=== PATIENT | female | born 1940 | race Caucasian/White ===

== ENCOUNTER 2019-11-04 19:24 | Inpatient (IN) | payer MEDICARE ==
--- NOTE | 2019-11-04 19:42 | RADIOLOGY REPORT (SQ) ---
EXAM DESCRIPTION: CT HEAD WITHOUT IMAGES COMPLETED DATE/TIME: 11/04/2019 7:32 pm REASON FOR STUDY: s/s stroke COMPARISON: None. TECHNIQUE: Axial images acquired through the brain without intravenous contrast. Images reviewed wi th bone, brain and subdural windows. Additional sagittal and coronal reconstructions were generated. Images stored on PACS. All CT scanners at this facility use dose modulation, iterative reconstruction, and/or weight based d osing when appropriate to reduce radiation dose to as low as reasonably achievable (ALARA). [facility]: Dose Right [facility]: CareDose [facility]: Dose Right [facility]: Teradose 4D [facility]: [employer] RADIATION DOSE: mGy. LIMITATIONS: None. FINDINGS: VENTRICLES: Normal size and contour. CEREBRUM: No masses. No hemorrhage. No midline shift. No evidence for acute infarction. Normal gra y/white matter differentiation. No areas of low density in the white matter. CEREBELLUM: No masses. No hemorrhage. No alteration of density. No evidence for acute infarction. EXTRAAXIAL SPACES: No fluid collections. No masses. ORBITS AND GLOBE: No intra- or extraconal masses. Normal contour of globe without masses. CALVARIUM: No fracture. PARANASAL SINUSES: No fluid or mucosal thickening. SOFT TISSUES: No mass or hematoma. OTHER: No other significant finding. IMPRESSION: NORMAL BRAIN CT WITHOUT CONTRAST. EVIDENCE OF ACUTE STROKE: NO. COMMENT: Quality ID # [id number]: Final reports with documentation of one or more dose reduction techniques (e.g., Automated exposure control, adjustment of the mA and/or kV according to patient size, use of iterative reconstruction technique) TECHNICAL DOCUMENTATION: JOB ID: [id number] 2010 [employer]- All Rights Reserved Reading location - IP/workstation name: [email or web address]
--- NOTE | 2019-11-04 19:44 | RADIOLOGY REPORT (SQ) ---
EXAM DESCRIPTION: CHEST SINGLE VIEW IMAGES COMPLETED DATE/TIME: 11/04/2019 7:36 pm REASON FOR STUDY: s/s stroke COMPARISON: None. EXAM PARAMETERS: NUMBER OF VIEWS: One view. TECHNIQUE: Single frontal radiographic view of the chest acquired. RADIATION DOSE: NA LIMITATIONS: None. FINDINGS: LUNGS AND PLEURA: Hyperexpansion of the lungs. No infiltrate, effusion, or mass. MEDIASTINUM AND HILAR STRUCTURES: No masses. Contour normal. HEART AND VASCULAR STRUCTURES: Heart normal in size. Normal vasculature. BONES: No acute findings. HARDWARE: None in the chest. OTHER: No other significant finding. IMPRESSION: Chronic lung changes with no acute cardiopulmonary findings. TECHNICAL DOCUMENTATION: JOB ID: [id number] 2010 [employer]- All Rights Reserved Reading location - IP/workstation name: [email or web address]
[2019-11-04 19:58] LABS: ABSOLUTE EOSINOPHILS # (AUTO) 0.1 10^3/uL (0.0-0.6); ABSOLUTE LYMPHOCYTES (AUTO) 2.4 10^3/uL (0.5-4.7); ABSOLUTE MONOCYTES (AUTO) 0.4 10^3/uL (0.1-1.4); ABSOLUTE NEUT (AUTO) 4.1 10^3/uL (1.7-8.2); BASOPHILS % (AUTO) 0.5 % (0-2); EOSINOPHILS % (AUTO) 0.8 % (0-6); HEMATOCRIT 31.2 % (36.0-47.0); HEMOGLOBIN 10.3 g/dL (12.0-15.5); LYMPHOCYTES % (AUTO) 34.9 % (13-45); MEAN CORPUSCULAR HEMOGLOBIN 30.2 pg (27.0-33.4); MEAN CORPUSCULAR HGB CONC 32.9 g/dL (32.0-36.0); MEAN CORPUSCULAR VOLUME 92 fl (80-97); MONOCYTES % (AUTO) 6.1 % (3-13); PLATELET COUNT 216 10^3/uL (150-450); RED CELL DISTRIBUTION WIDTH 15.9 % (11.5-14.0); SEGMENTED NEUTROPHILS % (AUTO) 57.7 % (42-78); TOTAL CELLS COUNTED % (AUTO) 100 %
[2019-11-04 20:03] LABS: INTERNATIONAL RATION (INR) 0.97; PROTHROMBIN TIME 12.9 SEC (11.4-15.4)
[2019-11-04 20:04] LABS: PARTIAL THROMBOPLASTIN TIME 22.4 SEC (23.5-35.8)
--- NOTE | 2019-11-04 20:18 | ER Document Report ---
ED General - General Chief Complaint: S/S of Possible Stroke Stated Complaint: POSSIBLE STROKE Time Seen by Provider: 11/04/19 19:43 Primary Care Provider: ROSALIND CHILDRESS PA-C [Primary Care Provider] - Follow up as needed - HPI Notes: Patient is a 79-year-old female brought into the emergency department for evaluation. History is obtained entirely from EMS. Evidently patient was with family. She suddenly was unable to see, then was unable to speak. EMS was called. Upon their arrival she was having seizure activity. They went to the truck to obtain medication, by the time they returned her seizure activity had stopped. She was medicated with Versed, and brought to the emergency department for evaluation. The patient remained a phasic throughout the transport, but was able to answer my questions upon arrival. The patient denies any pain. She has no memory of the event, no memory of the day. She cannot tell me who her primary care provider is. - Related Data Allergies/Adverse Reactions: No Known Allergies Allergy (Unverified 11/04/19 21:07) Home Medications: Nitroglycerin patch, atorvastatin 40 mg daily, Plavix 75 mg daily, ferrous sulfate 325 mg daily, mirtazapine 7.5 mg at bedtime, Xanax 0.25 mg 3 times daily as needed, this is currently being weaned by primary care Past Medical History - General Information source: Emergency Med Personnel - Social History Smoking Status: Former Smoker Frequency of alcohol use: None Drug Abuse: None Family History: Reviewed & Not Pertinent Patient has homicidal ideation: No - Past Medical History Cardiac Medical History: Reports: Hx Coronary Artery Disease, Hx Heart Attack Pulmonary Medical History: Reports: Hx COPD Past Surgical History: Reports: Hx Coronary Stent Review of Systems - Review of Systems -: Yes ROS unobtainable due to patient's medical condition Neurological/Psychological: See HPI -: Yes All other systems reviewed and negative Physical Exam - Vital signs Vitals: Pulse Ox 99 11/04/19 19:24 - Notes Notes: This is an extremely frail-appearing 79-year-old female who appears her stated age, no acute distress. Vital signs reviewed, please refer to chart. Head is normocephalic, atraumatic. Pupils equal round, reactive to light. Neck is supple without meningismus. Heart is regular rate and rhythm. Lungs are clear to auscultation bilaterally. Abdomen is soft, nontender, normoactive bowel sounds throughout. Extremities without cyanosis, clubbing. Posterior calves are nontender. Peripheral pulses are equal. Skin is warm and dry. Patient is awake, alert, disoriented to place and time. Cranial nerves II - XII are grossly intact without focal neurological deficits. Strength is plus 4 out of 5 bilateral upper and lower extremities. Sensation is intact. Reflexes symmetrical. Intact rapid alternating movements and [id number]. She has difficulty with [id number]. Course - Re-evaluation Re-evalutation: 11/04/19 20:17 Patient presents to the emergency department for evaluation. She was called as a stroke alert as her symptoms, consistent with possible CVA, started at 1820. Upon presentation to the emergency department she had already had some improvement in her symptoms. At this point, besides some memory loss, she seems to have had complete resolution of her symptoms. My suspicion is that the memory loss is from her postictal state. Therefore, with resolution of her symptoms, this patient is in fact not a TPA candidate. I am awaiting conversation with family to determine her history, but I do see from her medication prescription history that she has been on Plavix in the past. I am unsure as to what sort of neurological work-up she has had, as this is her first visit to our facility. She is stable at this time. We will continue to monitor. 11/04/19 21:08 I was able to speak to patient's granddaughter, who was present at the time of symptom onset. Evidently the patient lived with her son in [place] until recently. She has had a heart attack, has been malnourished. No history of TIA or CVA per their knowledge. 11/04/19 21:28 Went back into evaluate patient. She seems to be back to baseline. She is able to tell me she lives with her daughter and granddaughter. Notes the year, month. I spoke with Dr. Guerra. I do believe this to be a TIA with seizure activity. The patient was given aspirin. We will admit her for further care. - Vital Signs Vital signs: Temp Pulse Resp BP Pulse Ox 97.7 F 110 H 24 H 170/79 H 100 11/04/19 19:36 11/04/19 19:26 11/04/19 21:01 11/04/19 21:00 11/04/19 21:01 - Laboratory Result Diagrams: 11/04/19 19:42 11/04/19 19:42 Laboratory results interpreted by me: 11/04/19 11/04/19 11/04/19 19:40 19:42 19:42 RBC 3.40 L Hgb 10.3 L Hct 31.2 L RDW 15.9 H APTT 22.4 L Glucose POC Glucose 124 H AST 11/04/19 19:42 RBC Hgb Hct RDW APTT Glucose 126 H POC Glucose AST 42 H - Diagnostic Test Radiology reviewed: Reports reviewed Radiology results interpreted by me: 11/04/19 20:18 Chest X-Ray 11/04/19 19:26 IMPRESSION: Chronic lung changes with no acute cardiopulmonary findings. Head CT 11/04/19 19:26 IMPRESSION: NORMAL BRAIN CT WITHOUT CONTRAST. EVIDENCE OF ACUTE STROKE: NO. - EKG Interpretation by Me Additional EKG results interpreted by me: 11/04/19 20:18 Sinus tachycardia with a rate of 112 bpm. Normal axis and intervals. Lateral nonspecific ST changes, likely secondary to LVH with strain, versus ischemia. No old studies available for comparison. Discharge - Discharge Clinical Impression: TIA (transient ischemic attack), Seizure Condition: Stable Disposition: ADMITTED INPATIENT Admitting Provider: Charlie (Hospitalist) Unit Admitted: [facility]U Referrals: ROSALIND CHILDRESS PA-C [Primary Care Provider] - Follow up as needed
[2019-11-04 20:20] LABS: ALBUMIN 3.6 g/dL (3.5-5.0); ALKALINE PHOSPHATASE 97 U/L (38-126); ANION GAP 9 (5-19); ASPARTATE AMINO TRANSFERASE 42 U/L (14-36); BILIRUBIN,TOTAL 0.3 mg/dL (0.2-1.3); BLOOD UREA NITROGEN 20 mg/dL (7-20); CALCIUM 8.6 mg/dL (8.4-10.2); CARBON DIOXIDE 25 mmol/L (22-30); CHLORIDE 104 mmol/L (98-107); CREATINE KINASE 59 U/L (30-135); GLUCOSE 126 mg/dL (75-110); POTASSIUM 4.5 mmol/L (3.6-5.0); TOTAL PROTEIN 6.4 g/dL (6.3-8.2)
[2019-11-04 20:26] LABS: CREATINE KINASE MB 2.08 ng/mL (<4.55)
[2019-11-04 20:30] LABS: TROPONIN I 0.016 ng/mL
[2019-11-04] MEDS ORDERED: ASPIRIN 325 MG TABLET PO ONE (21:07)
[2019-11-04] MEDS ORDERED: MAGNESIUM HYDROXIDE SUSP 30 ML UDCUP PO PRN (21:28)
[2019-11-04] MEDS ORDERED: DOCUSATE SODIUM 100 MG CAPSULE PO PRN (21:28)
[2019-11-04] MEDS ORDERED: LORAZEPAM INJ 2 MG/1 ML VIAL IV PRN (21:33)
[2019-11-04] MEDS ORDERED: METOPROLOL TARTRATE 25 MG TABLET PO ONE (22:07)
[2019-11-04] MEDS: HEPARIN SOD (PORCINE) 5,000 UNIT/ML 1 ML VIAL SUBCUT SCH (22:08)
[2019-11-04] MEDS: ATORVASTATIN CALCIUM 40 MG TABLET PO SCH (22:08)
[2019-11-05] MEDS ORDERED: HYDRALAZINE HCL INJ/PF 20 MG/1 ML SDV IV PRN (00:16)
[2019-11-05] MEDS ORDERED: DIAZEPAM INJ 10 MG/2 ML DISP.SYRIN IV ONE (01:00)
[2019-11-05] MEDS ORDERED: LEVETIRACETAM 1000 MG/NACL-ISO 1,000 MG/100 ML RTUPB IV ONE (01:00)
[2019-11-05] MEDS ORDERED: ALBUTEROL SULFATE HFA (90 MCG/PUFF) 200 PUFF/8.5 GM MDI IH PRN (03:47)
[2019-11-05] MEDS: IPRATROPIUM BROMIDE 0.02% NEB 0.5 MG/2.5 ML AMPUL NEB PRN ×2 (04:03→20:29)
--- NOTE | 2019-11-05 05:50 | PDOC H&P ---
History of Present Illness Admission Date/PCP: 11/04/19 21:39 ROSALIND CHILDRESS PA-C Patient complains of: Seizure History of Present Illness: TIANA REESE is a 79 year old female with a past medical history of coronary artery disease status post stent, dyslipidemia, iron deficiency anemia, malnutrition with cachexia and benzodiazepine dependent anxiety. Patient's h istory is obtained by the record as she is post ictal and poor historian. Patient is recently relocated from out of [facility] to reside with family where she has reportedly undergone a benzodiazepine taper. She presents shortly after complaining of loss of vision followed by difficulty with speech prompting a call to EMS who witnessed a seizure. In the emergency department she has no memory of the event and is unaware of her medical history or doctor. Past Medical History Cardiac Medical History: Reports: Coronary Artery Disease, Myocardial Infarction, Hyperlipidema, Hypertension Pulmonary Medical History: Reports: Chronic Obstructive Pulmonary Disease (COPD) GI Medical History: Reports: Gastroesophageal Reflux Disease Psychiatric Medical History: Reports: General Anxiety Disorder Denies: Depression Past Surgical History Past Surgical History: Reports: Coronary Stent Social History Information Source: Emergency Med Personnel Lives with: Family Smoking Status: Former Smoker Frequency of Alcohol Use: None Drugs: None - Advance Directive Resuscitation Status: Full Code Family History Family History: Other - Unobtainable Parental Family History Reviewed: No - Unobtainable Children Family History Reviewed: No - Unobtainable Sibling(s) Family History Reviewed.: No - Unobtainable Medication/Allergy Allergies/Adverse Reactions: No Known Allergies Allergy (Unverified 11/04/19 21:07) Review of Systems ROS unobtainable: Due to mental status Physical Exam Vital Signs: Temp Pulse Resp BP Pulse Ox 97.6 F 106 H 34 H 163/82 H 100 11/05/19 03:26 11/05/19 04:09 11/05/19 04:09 11/05/19 04:00 11/05/19 04:09 Intake & Output 11/03/19 11/04/19 11/05/19 11:59 11:59 11:59 Intake Total 100 Balance 100 Weight 32.5 kg General appearance: PRESENT: cooperative, disheveled, mild distress, thin, well- developed. ABSENT: well-nourished Head exam: PRESENT: atraumatic, normocephalic Eye exam: PRESENT: conjunctiva pink, conjunctiva pale, EOMI, PERRLA. ABSENT: scleral icterus Ear exam: PRESENT: normal external ear exam Mouth exam: PRESENT: dry mucosa, tongue midline. ABSENT: laceration Neck exam: ABSENT: carotid bruit, JVD, lymphadenopathy, thyromegaly Respiratory exam: PRESENT: clear to auscultation beatriz. ABSENT: rales, rhonchi, wheezes Cardiovascular exam: PRESENT: RRR. ABSENT: diastolic murmur, rubs, systolic murmur Pulses: PRESENT: normal dorsalis pedis pul Vascular exam: PRESENT: normal capillary refill GI/Abdominal exam: PRESENT: normal bowel sounds, soft. ABSENT: distended, guarding, mass, organolmegaly, rebound, tenderness Rectal exam: PRESENT: deferred Extremities exam: PRESENT: full ROM. ABSENT: calf tenderness, clubbing, pedal edema, other Musculoskeletal exam: PRESENT: full ROM. ABSENT: ambulatory Neurological exam: PRESENT: alert, altered, awake, oriented to person, CN II-XII grossly intact Psychiatric exam: PRESENT: appropriate affect, normal mood. ABSENT: homicidal ideation, suicidal ideation Skin exam: PRESENT: dry, intact, skin tears - Left arm skin tear, warm, other - 1 x 1 cm stage III sacral decub. ABSENT: cyanosis, rash Results Laboratory Results: 11/04/19 19:42 11/04/19 19:42 11/04/19 11/04/19 19:42 19:42 WBC 7.0 RBC 3.40 L Hgb 10.3 L Hct 31.2 L MCV 92 MCH 30.2 MCHC 32.9 RDW 15.9 H Plt Count 216 Seg Neutrophils % 57.7 Sodium 137.9 Potassium 4.5 Chloride 104 Carbon Dioxide 25 Anion Gap 9 BUN 20 Creatinine 0.59 Est GFR ( Amer) > 60 Glucose 126 H Calcium 8.6 Total Bilirubin 0.3 AST 42 H Alkaline Phosphatase 97 Total Protein 6.4 Albumin 3.6 11/04/19 11/04/19 19:42 19:42 Creatine Kinase 59 CK-MB (CK-2) 2.08 Troponin I 0.016 Impressions: Chest X-Ray 11/04/19 19:26 IMPRESSION: Chronic lung changes with no acute cardiopulmonary findings. Head CT 11/04/19 19:26 IMPRESSION: NORMAL BRAIN CT WITHOUT CONTRAST. EVIDENCE OF ACUTE STROKE: NO. Assessment and Plan - Diagnosis (1) TIA (transient ischemic attack) Is this a current diagnosis for this admission?: Yes Plan: Combination of multiple short-lived neurologic complaints, resolving to baseline without intervention suggesting seizure in the setting of benzodiazepine taper. That said she has uncontrolled hypertension and coronary vascular disease. CVA care set ordered. Preliminary work-up unremarkable, aspirin, permissive hypertension and statin ordered. (2) Hypertension Is this a current diagnosis for this admission?: Yes Plan: Permissive hypertension with hydralazine as needed systolic pressure greater than 180 (3) Seizure Is this a current diagnosis for this admission?: Yes Plan: Primary complaint most suggestive of seizure in the setting of benzodiazepine taper. Keppra load, Valium scheduled with Ativan as needed, supportive care (4) Anxiety Is this a current diagnosis for this admission?: Yes Plan: Low-dose Valium ordered (5) Cachexia Is this a current diagnosis for this admission?: Yes Plan: Unclear cause, follow-up prealbumin. - Time Time Spent with patient: 15-24 minutes - Inpatient Certification Based on my medical assessment, after consideration of the patient's comorbiditi es, presenting symptoms, or acuity I expect that the services needed warrant INPATIENT care.: Yes I certify that my determination is in accordance with my understanding of [facility]'s requirements for reasonable and necessary INPATIENT services [42 CFR 412.3e].: Yes Medical Necessity: Need Close Monitoring Due to Risk of Patient Decompensation
[2019-11-05] MEDS: HEPARIN SOD (PORCINE) 5,000 UNIT/ML 1 ML VIAL SUBCUT SCH ×3 (06:00→21:35)
[2019-11-05 06:23] LABS: ABSOLUTE LYMPHOCYTES (AUTO) 1.7 10^3/uL (0.5-4.7); ABSOLUTE MONOCYTES (AUTO) 0.6 10^3/uL (0.1-1.4); ABSOLUTE NEUT (AUTO) 6.3 10^3/uL (1.7-8.2); BASOPHILS % (AUTO) 0.3 % (0-2); EOSINOPHILS % (AUTO) 0.1 % (0-6); HEMATOCRIT 29.7 % (36.0-47.0); LYMPHOCYTES % (AUTO) 19.5 % (13-45); MEAN CORPUSCULAR HEMOGLOBIN 30.3 pg (27.0-33.4); MEAN CORPUSCULAR HGB CONC 33.6 g/dL (32.0-36.0); MEAN CORPUSCULAR VOLUME 90 fl (80-97); MONOCYTES % (AUTO) 6.9 % (3-13); PLATELET COUNT 185 10^3/uL (150-450); RED BLOOD COUNT 3.29 10^6/uL (3.72-5.28); RED CELL DISTRIBUTION WIDTH 15.6 % (11.5-14.0); SEGMENTED NEUTROPHILS % (AUTO) 73.2 % (42-78); TOTAL CELLS COUNTED % (AUTO) 100 %; WHITE BLOOD COUNT 8.7 10^3/uL (4.0-10.5)
[2019-11-05 06:45] LABS: ANION GAP 5 (5-19); BLOOD UREA NITROGEN 17 mg/dL (7-20); CALCIUM 8.7 mg/dL (8.4-10.2); CARBON DIOXIDE 28 mmol/L (22-30); CHLORIDE 102 mmol/L (98-107); GLUCOSE 110 mg/dL (75-110)
--- NOTE | 2019-11-05 07:48 | EKG REPORT ---
SEVERITY:- ABNORMAL ECG - SINUS TACHYCARDIA PROBABLE LVH WITH SECONDARY REPOL ABNRM : Confirmed by: Ebony Slater MD 05-Nov-2019 07:47:48
--- NOTE | 2019-11-05 07:48 | EKG REPORT ---
SEVERITY:- ABNORMAL ECG - SINUS TACHYCARDIA LVH WITH SECONDARY REPOLARIZATION ABNORMALITY REPOLARIZATION ABNORMALITY, PROB RATE RELATED : Confirmed by: Ebony Slater MD 05-Nov-2019 07:47:42
[2019-11-05] MEDS: BUDESONIDE NEB 0.5 MG/2 ML AMPUL NEB SCH ×2 (08:24→20:29)
[2019-11-05 08:49] LABS: ARTERIAL BLOOD BASE EXCESS 1.9 mmol/L; ARTERIAL BLOOD FIO2 3L; ARTERIAL BLOOD H2CO3 1.32 mmol/L (1.05-1.35); ARTERIAL BLOOD HCO3 26.9 mmol/L (20-24); ARTERIAL BLOOD O2 SATURATION 99.1 % (94-98); ARTERIAL BLOOD PO2 169.7 mmHg (80-100); ARTERIAL BLOOD TOTAL CO2 28.2 mmol/L (21-25)
[2019-11-05] MEDS: LEVETIRACETAM 1000 MG/NACL-ISO 1,000 MG/100 ML RTUPB IV SCH ×2 (09:19→21:31)
[2019-11-05] MEDS: ASPIRIN 81 MG TABLET, ENT COATED PO SCH (09:24)
[2019-11-05] MEDS: METOPROLOL TARTRATE 50 MG TABLET PO SCH ×2 (09:24→21:33)
--- NOTE | 2019-11-05 14:28 | RADIOLOGY REPORT (SQ) ---
EXAM DESCRIPTION: CAROTID DOPPLER IMAGES COMPLETED DATE/TIME: 11/05/2019 1:57 pm REASON FOR STUDY: seizure COMPARISON: None. TECHNIQUE: Grayscale ultrasound, Doppler velocity and spectra, and color Doppler images acquired of the extra-cranial carotid and vertebral arteries. Images stored on PACS. LIMITATIONS: Heavily calcified vessels. FINDINGS: RIGHT CAROTID CCA Velocities: Within normal limits. ICA Velocities Peak systolic 1.46 m/s. End diastolic 0.32 m/s. Proximal ICA/CCA peak systolic ratio 1.5. Complex calcified plaque in the carotid bulb and proximal ICA. LEFT CAROTID CCA Velocities: Within normal limits. ICA Velocities Peak systolic 1.25 m/s. End diastolic 0.18 m/s. Proximal ICA/CCA peak systolic ratio 1.8. Complex calcified plaque in the distal common carotid artery, carotid bulb and proximal ICA. VERTEBRAL ARTERIES: Antegrade flow. Normal waveforms. SUBCLAVIAN ARTERIES: No finding. OTHER: No other significant finding. IMPRESSION: Limited evaluation due to heavily calcified vessels. 50 to 69% stenosis bilaterally. COMMENT: Quality ID #[id number]: Velocity criteria are extrapolated from the diameter data as defined by t he Society of Radiologists in Ultrasound Consensus Conference. Radiology 2003: 229; 340-346. TECHNICAL DOCUMENTATION: JOB ID: [id number] 2010 [employer]- All Rights Reserved Reading location - IP/workstation name: [email or web address]
--- NOTE | 2019-11-05 16:15 | PDOC PROGRESS REPORT ---
Subjective Progress Note for:: 11/05/19 Subjective:: TIANA REESE is a 79 year old female with a past medical history of coronary artery disease status post stent, dyslipidemia, iron deficiency anemia, malnutrition with cachexia and benzodiazepine dependent anxiety who was admitted 11/04/2019 for TIA and new onset seizure activity. Patient was seen on afternoon rounds. She is found resting in bed, comfortably, on room air. She was sleeping but woke easily when I said her name. She is A&O to self and place; however, is able to list several of her medications accurately. She reports pleuritic chest pain; generalized discomfort with deep inspiration and cough. She denies productive cough. Otherwise, she reports fatigue and increased forgetfulness from her baseline today. She reports that her weight (during a healthy. And her mid 50s) should be about 130 pounds; she currently weighs 71 pounds. She does tell me that she has been gradually gaining weight over the last several weeks. She denies fever, chills, cardiac typical chest pain symptoms, dyspnea, orthopnea, abdominal pain, nausea vomiting and diarrhea. She has no other questions or concerns at this time. No concerns per nursing. Reason For Visit: BENZO WITHDRAW SZ VS TIA HTN CAD Physical Exam Vital Signs: Temp Pulse Resp BP Pulse Ox 98.0 F 78 18 134/54 H 92 11/05/19 10:51 11/05/19 14:00 11/05/19 12:00 11/05/19 12:00 11/05/19 12:00 Intake & Output 11/04/19 11/05/19 11/06/19 06:59 06:59 06:59 Intake Total 100 100 Balance 100 100 Weight 32.5 kg General appearance: PRESENT: no acute distress, cooperative, thin - Cachectic, well-developed Head exam: PRESENT: atraumatic, normocephalic Eye exam: PRESENT: conjunctiva pink, EOMI, PERRLA. ABSENT: scleral icterus Mouth exam: PRESENT: moist, tongue midline Respiratory exam: PRESENT: clear to auscultation beatriz, symmetrical, unlabored. ABSENT: rales, rhonchi, wheezes Cardiovascular exam: PRESENT: RRR. ABSENT: diastolic murmur, rubs, systolic murmur Pulses: PRESENT: normal dorsalis pedis pul Vascular exam: PRESENT: normal capillary refill GI/Abdominal exam: PRESENT: normal bowel sounds, soft. ABSENT: distended, guarding, mass, organolmegaly, rebound, tenderness Rectal exam: PRESENT: deferred Extremities exam: PRESENT: full ROM. ABSENT: calf tenderness, clubbing, pedal edema Neurological exam: PRESENT: alert, awake, oriented to person, oriented to place, CN II-XII grossly intact, other - Intermittently confused. ABSENT: motor sensory deficit Psychiatric exam: PRESENT: appropriate affect, normal mood. ABSENT: homicidal ideation, suicidal ideation Skin exam: PRESENT: dry, intact, warm. ABSENT: cyanosis, rash Results Laboratory Results: 11/05/19 05:45 11/05/19 05:45 11/04/19 11/04/19 11/05/19 19:42 19:42 05:45 WBC 7.0 8.7 RBC 3.40 L 3.29 L Hgb 10.3 L 10.0 L Hct 31.2 L 29.7 L MCV 92 90 MCH 30.2 30.3 MCHC 32.9 33.6 RDW 15.9 H 15.6 H Plt Count 216 185 Seg Neutrophils % 57.7 73.2 Carbonic Acid HCO3/H2CO3 Ratio ABG pH ABG pCO2 ABG pO2 ABG HCO3 ABG O2 Saturation ABG Base Excess FiO2 Sodium 137.9 Potassium 4.5 Chloride 104 Carbon Dioxide 25 Anion Gap 9 BUN 20 Creatinine 0.59 Est GFR ( Amer) > 60 Glucose 126 H Calcium 8.6 Total Bilirubin 0.3 AST 42 H Alkaline Phosphatase 97 Total Protein 6.4 Albumin 3.6 Prealbumin 11/05/19 11/05/19 11/05/19 05:45 05:45 08:42 WBC RBC Hgb Hct MCV MCH MCHC RDW Plt Count Seg Neutrophils % Carbonic Acid 1.32 HCO3/H2CO3 Ratio 20:1 ABG pH 7.40 ABG pCO2 44.0 ABG pO2 169.7 H ABG HCO3 26.9 H ABG O2 Saturation 99.1 H ABG Base Excess 1.9 FiO2 3L Sodium 135.4 L Potassium 4.0 Chloride 102 Carbon Dioxide 28 Anion Gap 5 BUN 17 Creatinine 0.46 L Est GFR ( Amer) > 60 Glucose 110 Calcium 8.7 Total Bilirubin AST Alkaline Phosphatase Total Protein Albumin Prealbumin 16.9 L 11/04/19 11/04/19 19:42 19:42 Creatine Kinase 59 CK-MB (CK-2) 2.08 Troponin I 0.016 Impressions: Chest X-Ray 11/04/19 19:26 IMPRESSION: Chronic lung changes with no acute cardiopulmonary findings. Head CT 11/04/19 19:26 IMPRESSION: NORMAL BRAIN CT WITHOUT CONTRAST. EVIDENCE OF ACUTE STROKE: NO. Carotid Doppler Study 11/05/19 21:29 IMPRESSION: Limited evaluation due to heavily calcified vessels. 50 to 69% stenosis bilaterally. Assessment and Plan - Diagnosis (1) TIA (transient ischemic attack) Is this a current diagnosis for this admission?: Yes Plan: Head CT is benign. Carotid Doppler are 50-69% occluded bilaterally. Echocardiogram is pending. Admitted to [facility] on continuous cardiac telemetry. Continue daily aspirin and statin therapy. Permissive hypertension. PT/OT/ST consultation. Discharge planning consulted. (2) Seizure Is this a current diagnosis for this admission?: Yes Plan: Primary complaint most suggestive of seizure in the setting of benzodiazepine taper. Head CT negative. Received loading dose Keppra; continue with Keppra twice daily. Resumed low dose Xanax. IV Ativan prn seizure activity. (3) Hypertension Is this a current diagnosis for this admission?: Yes Plan: Resume Metoprolol at 50 mg BID IV Hydralazine as needed for blood pressure control. Cardiac diet. (4) Anxiety Is this a current diagnosis for this admission?: Yes Plan: Due to concern for benzodiazepine withdrawal resulting in seizure activity due to rapid weaning from Xanax. Continue home dose Remeron. Resume Xanax at 0.25 mg TID. (5) Cachexia Is this a current diagnosis for this admission?: Yes Plan: BMI 13.5 Patient reports gradual weight gain over last several weeks. Continue Remeron. Consider Megace. Boost/Ensure with meals. people manager consulted. - Time Time Spent with patient: 25-34 minutes Medications reviewed and adjusted accordingly: Yes Anticipated discharge: Home with Homehealth Within: within 48 hours
[2019-11-05] MEDS ORDERED: LIDOCAINE 5% (700 MG) TRANSDERMAL ADH..PATCH TP ONE (17:00)
[2019-11-05] MEDS: ATORVASTATIN CALCIUM 40 MG TABLET PO SCH (21:33)
[2019-11-05] MEDS: ALPRAZOLAM 0.25 MG TABLET PO PRN (21:54)
--- NOTE | 2019-11-05 22:48 | XCELERA REPORT ---
[address] [address] Transthoracic Echocardiogram Report Name: TIANA REESE Age: 79 yrs Gender: Female : 1940 Patient Status: Inpatient Patient Location: [address] [place], [place] [address] Study Date: 11/05/2019 09:56 AM Height: 61 in Weight: 78 lb BSA: 1.3 m2 Procedure: A two-dimensional transthoracic echocardiogram with color flow and Doppler was performed. Study Quality: Good. Reason For Study: tia History: TIA. Ordering Physician: BLAYNE RUSSO Performed By: Maria Guadalupe Paniagua Interpretation Summary There is no obvious cardiac source of embolus noted on this transthoracic echocardiogram. Follow-up with a TANYA is suggested if cardiac source is still suspected. The left ventricle is normal in size. There is normal left ventricular wall thickness. LV EF is 60% to 65% Left ventricular systolic function is normal. Doppler measurements suggest impaired left ventricular relaxation, which is associated with grade I/IV or mild diastolic dysfunction The left ventricular wall motion is normal. There is no thrombus. No ASD,VSD,or PFO seen. The right ventricle is mildly dilated. The right ventricular systolic function is normal. The right atrium is normal. The left atrial size is normal. There is no evidence of mitral valve prolapse. There is no vegetation seen on the mitral valve. There is no mitral valve stenosis. There is a mild amount of mitral regurgitation There is no aortic valvular vegetation. There is aortic sclerosis without aortic stenosis. There is no aortic valve stenosis There is a mild to moderate amount of aortic regurgitation There is no tricuspid stenosis. There is a mild amount of tricuspid regurgitation There is moderate pulmonary hypertension by echo RVSP is 53 to 58 mm of Hg , with RA men of 5 to 10, There is no pulmonic valvular stenosis. There is a mild amount of pulmonic regurgitation The aortic root is normal size. The inferior vena cava appeared normal and decreased > 50% with respiration (RAP 5-10 mmHg) There is no pericardial effusion. There is no obvious cardiac source of embolus noted on this transthoracic echocardiogram. Follow-up with a TANYA is suggested if cardiac source is still suspected MMode/2D Measurements & Calculations RVDd: 2.3 cm LVIDd: 3.5 cm FS: 27.8 % Ao root diam: 2.9 cm IVSd: 1.2 cm LVIDs: 2.5 cm EDV(Teich): Ao root area: LVPWd: 1.1 cm 51.3 ml 6.5 cm2 ESV(Teich): 23.1 ml EF(Teich): 54.9 % EDV(MOD-sp4): SV(MOD-sp4): 44.5 ml 19.7 ml ESV(MOD-sp4): 24.8 ml EF(MOD-sp4): 44.3 % Doppler Measurements & Calculations MV E max zenaida: MV dec slope: Ao V2 max: AI max zenaida: 86.2 cm/sec 129.7 cm/sec 421.8 cm/sec MV A max zenaida: 463.2 cm/sec2 Ao max PG: AI max P.4 mmHg 142.2 cm/sec MV dec time: 6.7 mmHg AI dec slope: MV E/A: 0.61 0.19 sec 293.3 cm/sec2 AI P1/2t: 421.3 msec LV V1 max PG: PI end-d zenaida: TR max zenaida: 3.6 mmHg 180.3 cm/sec 343.7 cm/sec LV V1 max: TR max P.3 cm/sec 47.6 mmHg Left Ventricle The left ventricle is normal in size. There is normal left ventricular wall thickness. LV EF is 60% to 65%. Left ventricular systolic function is normal. Doppler measurements suggest impaired left ventricular relaxation, which is associated with grade I/IV or mild diastolic dysfunction. The left ventricular wall motion is normal. There is no thrombus. No ASD,VSD,or PFO seen. Right Ventricle The right ventricle is mildly dilated. The right ventricular systolic function is normal. Atria The right atrium is normal. The left atrial size is normal. Mitral Valve There is no evidence of mitral valve prolapse. There is no vegetation seen on the mitral valve. There is no mitral valve stenosis. There is a mild amount of mitral regurgitation. Aortic Valve There is no aortic valvular vegetation. There is aortic sclerosis without aortic stenosis. There is no aortic valve stenosis. There is a mild to moderate amount of aortic regurgitation. Tricuspid Valve There is no tricuspid stenosis. There is a mild amount of tricuspid regurgitation. There is moderate pulmonary hypertension by echo. RVSP is 53 to 58 mm of Hg , with RA men of 5 to 10,. Pulmonic Valve There is no pulmonic valvular stenosis. There is a mild amount of pulmonic regurgitation. Great Vessels The aortic root is normal size. The inferior vena cava appeared normal and decreased > 50% with respiration (RAP 5-10 mmHg). Effusions There is no pericardial effusion. : BLAYNE RUSSO Lakshmi
[2019-11-06 05:39] LABS: HEMATOCRIT 28.8 % (36.0-47.0); HEMOGLOBIN 9.6 g/dL (12.0-15.5); MEAN CORPUSCULAR HGB CONC 33.5 g/dL (32.0-36.0); MEAN CORPUSCULAR VOLUME 90 fl (80-97); PLATELET COUNT 180 10^3/uL (150-450); RED BLOOD COUNT 3.21 10^6/uL (3.72-5.28); RED CELL DISTRIBUTION WIDTH 15.6 % (11.5-14.0); WHITE BLOOD COUNT 7.3 10^3/uL (4.0-10.5)
[2019-11-06 06:08] LABS: BLOOD UREA NITROGEN 18 mg/dL (7-20); CALCIUM 8.5 mg/dL (8.4-10.2); CARBON DIOXIDE 29 mmol/L (22-30); CHLORIDE 104 mmol/L (98-107); GLUCOSE 80 mg/dL (75-110); POTASSIUM 3.7 mmol/L (3.6-5.0)
[2019-11-06 06:17] LABS: ANION GAP 3 (5-19)
[2019-11-06] MEDS: HEPARIN SOD (PORCINE) 5,000 UNIT/ML 1 ML VIAL SUBCUT SCH ×3 (06:59→21:05)
[2019-11-06] MEDS: IPRATROPIUM BROMIDE 0.02% NEB 0.5 MG/2.5 ML AMPUL NEB PRN (07:57)
[2019-11-06] MEDS: BUDESONIDE NEB 0.5 MG/2 ML AMPUL NEB SCH ×2 (07:57→20:23)
[2019-11-06] MEDS: ASPIRIN 81 MG TABLET, ENT COATED PO SCH (09:28)
[2019-11-06] MEDS: METOPROLOL TARTRATE 50 MG TABLET PO SCH ×2 (09:28→21:06)
[2019-11-06] MEDS: LEVETIRACETAM 1000 MG/NACL-ISO 1,000 MG/100 ML RTUPB IV SCH ×2 (09:28→21:05)
[2019-11-06] MEDS: LIDOCAINE 5% (700 MG) TRANSDERMAL ADH..PATCH TP SCH (09:29)
[2019-11-06] MEDS: MEGESTROL ACETATE SUSP 400 MG/10 ML UDCUP PO SCH (10:44)
--- NOTE | 2019-11-06 15:55 | PDOC PROGRESS REPORT ---
Subjective Progress Note for:: 11/06/19 Subjective:: TIANA REESE is a 79 year old female with a past medical history of coronary artery disease status post stent, dyslipidemia, iron deficiency anemia, malnutrition with cachexia and benzodiazepine dependent anxiety who was admitted 11/04/2019 for TIA and new onset seizure activity. Patient was seen on morning rounds. She is found resting in bed, comfortably, on room air. She was utilizing a bedpan asked me to return later. On follow-up visit, patient was found to be sleeping soundly; briefly opened her eyes when I said her name, but quickly fell back to sleep. Per nursing, she has been awake most of the day oriented to self and place, and pleasantly conversational. She does appear to be comfortable and not noted to be in any acute distress at this time. No concerns per nursing. Reason For Visit: BENZO WITHDRAW SZ VS TIA HTN CAD Physical Exam Vital Signs: Temp Pulse Resp BP Pulse Ox 97.6 F 88 15 137/58 H 98 11/06/19 10:48 11/06/19 14:00 11/06/19 12:00 11/06/19 12:00 11/06/19 12:00 Intake & Output 11/05/19 11/06/19 11/07/19 06:59 06:59 06:59 Intake Total 100 530 780 Output Total 1 Balance 100 530 779 Weight 32.5 kg 33 kg General appearance: PRESENT: no acute distress, cooperative, thin - Cachectic, well-developed Head exam: PRESENT: atraumatic, normocephalic Eye exam: PRESENT: conjunctiva pink, EOMI, PERRLA. ABSENT: scleral icterus Mouth exam: PRESENT: moist, tongue midline Neck exam: ABSENT: carotid bruit, JVD, lymphadenopathy, thyromegaly Respiratory exam: PRESENT: clear to auscultation beatriz, symmetrical, unlabored. ABSENT: rales, rhonchi, wheezes Cardiovascular exam: PRESENT: RRR. ABSENT: diastolic murmur, rubs, systolic murmur Pulses: PRESENT: normal dorsalis pedis pul Vascular exam: PRESENT: normal capillary refill GI/Abdominal exam: PRESENT: normal bowel sounds, soft. ABSENT: distended, guarding, mass, organolmegaly, rebound, tenderness Rectal exam: PRESENT: deferred Extremities exam: PRESENT: full ROM. ABSENT: calf tenderness, clubbing, pedal edema Musculoskeletal exam: PRESENT: full ROM Neurological exam: PRESENT: alert, awake, oriented to person, oriented to place, CN II-XII grossly intact. ABSENT: motor sensory deficit Psychiatric exam: PRESENT: appropriate affect, normal mood. ABSENT: homicidal ideation, suicidal ideation Skin exam: PRESENT: dry, intact, warm. ABSENT: cyanosis, rash Results Laboratory Results: 11/06/19 05:09 11/06/19 05:09 11/06/19 11/06/19 05:09 05:09 WBC 7.3 RBC 3.21 L Hgb 9.6 L Hct 28.8 L MCV 90 MCH 30.0 MCHC 33.5 RDW 15.6 H Plt Count 180 Sodium 136.2 L Potassium 3.7 Chloride 104 Carbon Dioxide 29 Anion Gap 3 L BUN 18 Creatinine 0.60 Est GFR ( Amer) > 60 Glucose 80 Calcium 8.5 11/04/19 11/04/19 19:42 19:42 Creatine Kinase 59 CK-MB (CK-2) 2.08 Troponin I 0.016 Impressions: Chest X-Ray 11/04/19 19:26 IMPRESSION: Chronic lung changes with no acute cardiopulmonary findings. Head CT 11/04/19 19:26 IMPRESSION: NORMAL BRAIN CT WITHOUT CONTRAST. EVIDENCE OF ACUTE STROKE: NO. Carotid Doppler Study 11/05/19 21:29 IMPRESSION: Limited evaluation due to heavily calcified vessels. 50 to 69% stenosis bilaterally. Assessment and Plan - Diagnosis (1) TIA (transient ischemic attack) Is this a current diagnosis for this admission?: Yes Plan: Head CT is benign. Carotid Doppler are 50-69% occluded bilaterally. Echocardiogram shows LVEF 60 to 65% with grade 1 LV diastolic dysfunction. Right ventricle mildly dilatated. Mild to moderate aortic regurgitation, mild tricuspid regurg, moderate pulmonary hypertension. Admitted to [facility] on continuous cardiac telemetry. Continue daily aspirin and statin therapy. PT/OT/ST consultation. Discharge planning consulted. (2) Seizure Is this a current diagnosis for this admission?: Yes Plan: Seizure-free x36 hours. Primary complaint most suggestive of seizure in the setting of benzodiazepine taper. Head CT negative. Received loading dose Keppra; continue with Keppra twice daily. Resumed low dose Xanax. IV Ativan prn seizure activity. (3) Hypertension Is this a current diagnosis for this admission?: Yes Plan: Well-controlled at present. Resume Metoprolol at 50 mg BID IV Hydralazine as needed for blood pressure control. Cardiac diet. (4) Anxiety Is this a current diagnosis for this admission?: Yes Plan: Due to concern for benzodiazepine withdrawal resulting in seizure activity due to rapid weaning from Xanax. Continue home dose Remeron. Resume Xanax at 0.25 mg TID. (5) Cachexia Is this a current diagnosis for this admission?: Yes Plan: BMI 13.5 Patient reports gradual weight gain over last several weeks. Continue Remeron. Initiated Megace this morning. Boost/Ensure with meals. snow shoveler consulted. - Time Time Spent with patient: 25-34 minutes Medications reviewed and adjusted accordingly: Yes Anticipated discharge: Home with Homehealth - vs SNF for rehab Within: within 24 hours
[2019-11-06] MEDS: ACETAMINOPHEN 325 MG TABLET PO PRN (19:50)
[2019-11-06] MEDS: ALBUTEROL SULFATE 0.083% NEB 2.5 MG/3 ML AMPUL NEB PRN (20:23)
[2019-11-06] MEDS: ALPRAZOLAM 0.25 MG TABLET PO PRN (20:57)
[2019-11-06] MEDS: ATORVASTATIN CALCIUM 40 MG TABLET PO SCH (21:05)
[2019-11-07] MEDS: HEPARIN SOD (PORCINE) 5,000 UNIT/ML 1 ML VIAL SUBCUT SCH ×3 (05:13→22:20)
[2019-11-07] MEDS: ACETAMINOPHEN 325 MG TABLET PO PRN ×3 (05:13→22:21)
[2019-11-07] MEDS: ALBUTEROL SULFATE 0.083% NEB 2.5 MG/3 ML AMPUL NEB PRN ×2 (09:37→17:14)
[2019-11-07] MEDS: BUDESONIDE NEB 0.5 MG/2 ML AMPUL NEB SCH ×2 (09:37→20:11)
[2019-11-07] MEDS: LIDOCAINE 5% (700 MG) TRANSDERMAL ADH..PATCH TP SCH (10:31)
[2019-11-07] MEDS: MEGESTROL ACETATE SUSP 400 MG/10 ML UDCUP PO SCH (10:31)
[2019-11-07] MEDS: LEVETIRACETAM 1000 MG/NACL-ISO 1,000 MG/100 ML RTUPB IV SCH (10:31)
[2019-11-07] MEDS: METOPROLOL TARTRATE 50 MG TABLET PO SCH ×2 (10:32→22:19)
[2019-11-07] MEDS: ASPIRIN 81 MG TABLET, ENT COATED PO SCH (10:32)
--- NOTE | 2019-11-07 16:54 | NEURO WORKBENCH EEG REPORT ---
EEG Report Patient: Melani Harmon ID: [id number] Referring Doctor: Marbella Contreras DOS: 11/07/2019 Medications: Aspirin, Lipitor, Budesonide, Porcine, Keppra, Lidocaine, Megastrol acetate, Lopressor History This is a 79 year old right handed female with a history of AR, coronary stent, hypercholesterolemia, hypertension, COPD, GERD, CAD, admitted with benzodiazepine withdrawal and seizure vs TIA. This EEG was requested for possible seizure. EEG Interpretation This EEG was recorded in the awake state only. The awake EEG is characterized by a fairly well-organized background without a well-formed posterior dominant rhythm. The remainder of the background was characterized by a combination of alpha with some theta frequencies. Photic stimulation resulted in a moderate driving response. There were no epileptiform abnormalities. The EKG showed a regular rhythm in approximately low 100 bpm. EEG Classification * Generalized background slowing, mild * EKG mild tachycardia EEG Impression This EEG is mildly abnormal. It is consistent with mild diffuse cerebral dysfunction. There were no epileptiform discharges. The EKG findings may require further investigation. INTERPRETING NEUROLOGIST: Dalia Mai MD, FRCPC Board Certified in Neurology, with special qualification in Child Neurology, and in Clinical Neurophysiology [facility]
--- NOTE | 2019-11-07 17:13 | PDOC PROGRESS REPORT ---
Subjective Progress Note for:: 11/07/19 Subjective:: TIANA REESE is a 79 year old female with a past medical history of coronary artery disease status post stent, dyslipidemia, iron deficiency anemia, malnutrition with cachexia and benzodiazepine dependent anxiety who was admitted 11/04/2019 for TIA and new onset seizure activity. Patient was seen on afternoon rounds. She is found resting in bed, comfortably, on room air. She was sleeping comfortably, but woke easily when I said her name. She continues to describe generalized chest wall discomfort with movement, inspiration, and cough. Pain is described as aching, somewhat relieved by Lidoderm patch. She notes an improved appetite, however, nursing indicates that other than breakfast, she is only had bites to eat today. She denies fever, dyspnea, abdominal pain, nausea and vomiting. She has no other questions or concerns at this time. No concerns per nursing. Reason For Visit: BENZO WITHDRAW SZ VS TIA HTN CAD Physical Exam Vital Signs: Temp Pulse Resp BP Pulse Ox 97.6 F 84 16 168/68 H 98 11/07/19 09:29 11/07/19 14:00 11/07/19 09:37 11/07/19 09:29 11/07/19 09:37 Intake & Output 11/06/19 11/07/19 11/08/19 06:59 06:59 06:59 Intake Total 530 1220 100 Output Total 1 Balance 530 1219 100 Weight 33 kg 31.2 kg General appearance: PRESENT: no acute distress, cooperative, thin, well-develo ped Head exam: PRESENT: atraumatic, normocephalic Eye exam: PRESENT: conjunctiva pink, EOMI, PERRLA. ABSENT: scleral icterus Mouth exam: PRESENT: moist, tongue midline Respiratory exam: PRESENT: clear to auscultation betariz, symmetrical, unlabored. ABSENT: rales, rhonchi, wheezes Cardiovascular exam: PRESENT: RRR, +S1, +S2. ABSENT: diastolic murmur, rubs, systolic murmur Vascular exam: PRESENT: normal capillary refill Extremities exam: PRESENT: full ROM. ABSENT: calf tenderness, clubbing, pedal edema Neurological exam: PRESENT: alert, awake, oriented to person, oriented to place, oriented to situation, CN II-XII grossly intact, other - Intermittently forgetful, conversational and socially appropriate. ABSENT: motor sensory deficit Psychiatric exam: PRESENT: appropriate affect, normal mood. ABSENT: homicidal ideation, suicidal ideation Skin exam: PRESENT: dry, intact, warm. ABSENT: cyanosis, rash Results Laboratory Results: 11/06/19 05:09 11/06/19 05:09 11/04/19 11/04/19 19:42 19:42 Creatine Kinase 59 CK-MB (CK-2) 2.08 Troponin I 0.016 Impressions: Chest X-Ray 11/04/19 19:26 IMPRESSION: Chronic lung changes with no acute cardiopulmonary findings. Head CT 11/04/19 19:26 IMPRESSION: NORMAL BRAIN CT WITHOUT CONTRAST. EVIDENCE OF ACUTE STROKE: NO. Carotid Doppler Study 11/05/19 21:29 IMPRESSION: Limited evaluation due to heavily calcified vessels. 50 to 69% stenosis bilaterally. Assessment and Plan - Diagnosis (1) TIA (transient ischemic attack) Is this a current diagnosis for this admission?: Yes Plan: Head CT is benign. Carotid Doppler are 50-69% occluded bilaterally. Echocardiogram shows LVEF 60 to 65% with grade 1 LV diastolic dysfunction. Right ventricle mildly dilatated. Mild to moderate aortic regurgitation, mild tricuspid regurg, moderate pulmonary hypertension. Admitted to [facility] on continuous cardiac telemetry. Continue daily aspirin and statin therapy. PT/OT/ST consultation. Recommend home health rehab services. Discharge planning consulted. (2) Seizure Is this a current diagnosis for this admission?: Yes Plan: Seizure-free >48hrs hours. Primary complaint most suggestive of seizure in the setting of benzodiazepine taper. Head CT negative. Received loading dose Keppra; continue with Keppra twice daily. Have resumed low dose Xanax; recommend slower weaning schedule at home. EEG showed generalized background slowing, mild. IV Ativan prn seizure activity. Will discuss w/ Neurology prior to d/c. (3) Hypertension Is this a current diagnosis for this admission?: Yes Plan: Well-controlled at present. Resume home dose Metoprolol IV Hydralazine as needed for blood pressure control. Cardiac diet. (4) Anxiety Is this a current diagnosis for this admission?: Yes Plan: Due to concern for benzodiazepine withdrawal resulting in seizure activity due to rapid weaning from Xanax. Continue home dose Remeron. Resume Xanax at 0.25 mg TID. (5) Cachexia Is this a current diagnosis for this admission?: Yes Plan: BMI 13.0 Patient reports gradual weight gain over last several weeks. Continue Remeron. Initiated Megace. Boost/Ensure with meals. case managers consulted. - Time Time Spent with patient: 25-34 minutes Medications reviewed and adjusted accordingly: Yes Anticipated discharge: Home with Homehealth Within: within 24 hours
--- NOTE | 2019-11-07 18:51 | EKG REPORT ---
SEVERITY:- ABNORMAL ECG - SINUS RHYTHM LVH WITH SECONDARY REPOLARIZATION ABNORMALITY : Confirmed by: Ebony Slater MD 07-Nov-2019 18:50:01
[2019-11-07] MEDS ORDERED: MIRTAZAPINE 15 MG TABLET PO SCH (22:00)
[2019-11-07] MEDS: LEVETIRACETAM 500 MG TABLET PO SCH (22:19)
[2019-11-07] MEDS: ATORVASTATIN CALCIUM 40 MG TABLET PO SCH (22:19)
[2019-11-07] MEDS: ALPRAZOLAM 0.25 MG TABLET PO PRN (22:25)
[2019-11-08] MEDS: HEPARIN SOD (PORCINE) 5,000 UNIT/ML 1 ML VIAL SUBCUT SCH ×2 (06:17→13:49)
[2019-11-08] MEDS: BUDESONIDE NEB 0.5 MG/2 ML AMPUL NEB SCH (09:37)
[2019-11-08] MEDS: LIDOCAINE 5% (700 MG) TRANSDERMAL ADH..PATCH TP SCH (09:57)
[2019-11-08] MEDS: LEVETIRACETAM 500 MG TABLET PO SCH (09:57)
[2019-11-08] MEDS: MEGESTROL ACETATE SUSP 400 MG/10 ML UDCUP PO SCH (09:57)
[2019-11-08] MEDS: ASPIRIN 81 MG TABLET, ENT COATED PO SCH (09:57)
[2019-11-08] MEDS: METOPROLOL TARTRATE 50 MG TABLET PO SCH (09:57)
[2019-11-08] MEDS: ALPRAZOLAM 0.25 MG TABLET PO PRN (10:03)
--- NOTE | 2019-11-08 11:50 | RADIOLOGY REPORT (SQ) ---
EXAM DESCRIPTION: MRI HEAD COMBO IMAGES COMPLETED DATE/TIME: 11/08/2019 11:30 am REASON FOR STUDY: new onset seizure COMPARISON: CT brain 11/04/2019 TECHNIQUE: Multiplanar imaging includes noncontrasted T1, T2, FLAIR, diffusion with ADC map and post gadolinium contrast T1 sequences. Images stored on PACS. CONTRAST TYPE AND DOSE: 10 mL Dotarem. RENAL FUNCTION: Not indicated. ACR Type II contrast agent associated with few, if any, unconfounded cases of NSF LIMITATIONS: Mild motion artifact FINDINGS: ANATOMY: No anomalies. Normal vascular flow voids. Pituitary fossa normal. CSF SPACES: Normal in size and contour. No hemorrhage. CEREBRUM: Diffusion-weighted images are negative for acute ischemic change. There is mild bifrontal and biparietal increased FLAIR signal from chronic small vessel ischemic aguilar ge. No brain parenchymal masses or abnormal contrast enhancement POSTERIOR FOSSA: No signal alteration. No hemorrhage. No edema, masses, or mass effect. Internal munira tory canals, cerebellopontine angles, mastoids normal. No enhancing lesions. No abnormal enhancement post contrast. DIFFUSION IMAGING: Negative for acute or subacute infarction. ORBITS: No masses. Globes post cataract surgery PARANASAL SINUSES: No fluid levels. Mucosa normal. OTHER: Fluid in the bilateral inferior mastoid air cells. 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 POST CATARACT SURGERY. OTHERWISE, UNREMARKABLE M RI OF THE BRAIN WITHOUT AND WITH INTRAVENOUS GADOLINIUM CONTRAST. EVIDENCE OF ACUTE STROKE: NO. TECHNICAL DOCUMENTATION: JOB ID: [id number] 2010 [employer]- All Rights Reserved Reading location - IP/workstation name: [facility]
[2019-11-08 14:02] VITALS: BP 126/58
[2019-11-08] MEDS ORDERED: LEVETIRACETAM ORAL SOLN 500 MG/5 ML UDCUP ONE (22:34)
[2019-11-08] MEDS ORDERED: LEVETIRACETAM ORAL SOLN 500 MG/5 ML UDCUP PO ONE (23:00)
[2019-11-09] MEDS ORDERED: NITROGLYCERIN 10 MG (0.4 MG/HR) PATCH.TD24 TOP SCH (10:00)
--- NOTE | 2019-11-09 11:14 | PDOC DISCHARGE SUMMARY ---
Impression - Admit/DC Date/PCP Admission Date/Primary Care Provider: 11/04/19 21:39 ROSALIND CHILDRESS PA-C Discharge Date: 11/08/19 - Discharge Diagnosis (1) TIA (transient ischemic attack) Is this a current diagnosis for this admission?: Yes (2) Seizure Is this a current diagnosis for this admission?: Yes (3) Hypertension Is this a current diagnosis for this admission?: Yes (4) Anxiety Is this a current diagnosis for this admission?: Yes (5) Cachexia Is this a current diagnosis for this admission?: Yes - Additional Information Resuscitation Status: Full Code Discharge Diet: Cardiac Discharge Activity: Activity As Tolerated, Balance Activity w/Rest Referrals: ROSALIND CHILDRESS PA-C [Primary Care Provider] - (Follow up within 1 week.) YARIEL MURPHY MD [NO LOCAL MD] - (Follow up at earliest available appointment.) Prescriptions: Levetiracetam [Keppra 500 mg Tablet] 500 mg PO Q12 #60 tablet Lidocaine [Lidoderm 5% (700 mg) Transdermal Patch] 1 patch TP DAILY #30 adh..patch Metoprolol Tartrate [Lopressor 50 mg Tablet] 50 mg PO Q12 #60 tablet Megestrol Acetate [Megace Tracey 400 mg/10 ml Udcup] 200 mg PO DAILY #30 udc Alprazolam [Xanax 0.25 mg Tablet] 0.25 mg PO ASDIR PRN #16 tablet PRN Reason: Home Medications: Albuterol Sulfate [Ventolin Hfa 8 gm Mdi] 1 puff IH Q4HP PRN 11/05/19 Alprazolam [Xanax 0.25 mg Tablet] 0.25 mg PO QAM 11/05/19 Aspirin [Ecotrin 81 mg EC Tablet] 81 mg PO DAILY 11/05/19 Atorvastatin Calcium [Lipitor 40 mg Tablet] 40 mg PO QHS 11/05/19 Bisacodyl [Dulcolax 5 mg Tablet] 5 mg PO DAILYP PRN 11/05/19 Budesonide [Pulmicort Neb 0.5 mg/2 ml Ampul] 0.5 mg NEB Q12 11/05/19 Clopidogrel Bisulfate [Plavix 75 mg Tablet] 75 mg PO DAILY 11/05/19 Famotidine [Pepcid 20 mg Tablet] 20 mg PO DAILY 11/05/19 Ipratropium [place] [Atrovent 0.02% Neb 0.5 mg/2.5 ml Ampul] 1 vial NEB BIDP PRN 11/05/19 Mirtazapine [Remeron 15 mg Tablet] 7.5 mg PO QHS 11/05/19 Nitroglycerin [Nitro-Dur 10 mg (0.4MG/Hr) Transdermal Patch] 0.4 mg TOP DAILY 11/05/19 Nitroglycerin [Nitrostat 0.4 mg (1/150 Gr) Tabs 25/Bottle] 0.4 mg SL Q5MP PRN 11/05/19 Lidocaine [Lidoderm 5% (700 mg) Transdermal Patch] 1 patch TP DAILY #30 adh..patch 11/07/19 Megestrol Acetate [Megace Tracey 400 mg/10 ml Udcup] 200 mg PO DAILY #30 udc 11/07/19 Metoprolol Tartrate [Lopressor 50 mg Tablet] 50 mg PO Q12 #60 tablet 11/07/19 Alprazolam [Xanax 0.25 mg Tablet] 0.25 mg PO ASDIR PRN #16 tablet 11/08/19 Levetiracetam [Keppra 500 mg Tablet] 500 mg PO Q12 #60 tablet 11/08/19 History of Present Illiness History of Present Illness: Per H&P by Dr. Guerra: TIANA REESE is a 79 year old female with a past medical history of coronary artery disease status post stent, dyslipidemia, iron deficiency anemia, malnutrition with cachexia and benzodiazepine dependent anxiety. Patient's history is obtained by the record as she is post ictal and poor historian. Patient is recently relocated from out of [facility] to reside with family where she has reportedly undergone a benzodiazepine taper. She presents shortly after complaining of loss of vision followed by difficulty with speech prompting a call to EMS who witnessed a seizure. In the emergency department she has no memory of the event and is unaware of her medical history or doctor. Hospital Course Hospital Course: (1) TIA (transient ischemic attack) Head CT is benign. Head MRI normal for age. Carotid Doppler are 50-69% occluded bilaterally. Echocardiogram shows LVEF 60 to 65% with grade 1 LV diastolic dysfunction. Right ventricle mildly dilatated. Mild to moderate aortic regurgitation, mild tricuspid regurg, moderate pulmonary hypertension. Patient was admitted to [facility] and monitored on continuous cardiac telemetry. She was placed on daily aspirin and statin therapy. Home dose Plavix continued. PT/OT/ST consultation. Recommended home health rehab services. Patient was discharged home, in stable condition, into the care of family members with resumption of home health services. Discussed TIA evaluation with karleeughter in detail. (2) Seizure Seizure-free >72hrs hours. Primary complaint most suggestive of seizure in the setting of benzodiazepine taper. Head CT negative. EEG showed mild generalized background slowing. Discussed the patient's presentation and work-up with Dr. Medel ([facility]). He recommended MRI w/wo contrast prior to discharge. He also recommended to continue Keppra and to follow-up with him as an outpatient. Fortunately, MRI was normal for age; no acute or significant findings. Patient received loading dose Keppra; she was continued on Keppra 500 mg twice daily at discharge. Prior to admission, the patient was being weaned from her longstanding Xanax. Discussed with Lizzy Isbell, granddaughter; they had been reducing by 0.25 mg every other day. I recommended slowing the rate of her taper to prevent possible benzo withdrawal as a complicating factor. Ms. Isbell noted that they had only a short supply of Xanax left and was uncertain if there was a refill available. I recommended decreasing by 0.25 mg every 4 to 5 days. Ms. Isbell was agreeable and asked that I send a refill with clear instructions on weaning schedule. (3) Hypertension Well-controlled at present. Continue Metoprolol; Rx provided. Cardiac diet. (4) Anxiety Due to concern for benzodiazepine withdrawal resulting in seizure activity due to rapid weaning from Xanax. Continue home dose Remeron. Received Xanax at 0.25 mg TID during admission. Resume slow taper at discharge as described above. (5) Cachexia BMI 13.0 Patient reports gradual weight gain over last several weeks. Continue Remeron. Initiated Megace. Recommend Boost/Ensure between meals. Physical Exam Vital Signs: Temp Pulse Resp BP Pulse Ox 98.0 F 76 22 H 126/58 H 100 11/08/19 14:00 11/08/19 14:00 11/08/19 14:00 11/08/19 14:00 11/08/19 14:00 Intake & Output 11/08/19 11/09/19 11/10/19 06:59 06:59 06:59 Intake Total 820 Balance 820 Weight 35.8 kg General appearance: PRESENT: no acute distress, cooperative, thin - Cachectic, well-developed, other - Older than stated age, Frail Head exam: PRESENT: atraumatic, normocephalic Eye exam: PRESENT: conjunctiva pink, EOMI, PERRLA. ABSENT: scleral icterus Mouth exam: PRESENT: moist, tongue midline Respiratory exam: PRESENT: clear to auscultation beatriz, symmetrical, unlabored, other - Rhonchi that clears following cough and swallow. ABSENT: rales, rhonchi, wheezes Cardiovascular exam: PRESENT: RRR, +S1, +S2. ABSENT: diastolic murmur, rubs, systolic murmur Vascular exam: PRESENT: normal capillary refill Extremities exam: PRESENT: full ROM. ABSENT: calf tenderness, clubbing, pedal edema Neurological exam: PRESENT: alert, awake, oriented to person, oriented to place, oriented to situation, CN II-XII grossly intact, other - Intermittent mild forgetfulness/confusion. ABSENT: motor sensory deficit Psychiatric exam: PRESENT: appropriate affect, normal mood. ABSENT: homicidal ideation, suicidal ideation Skin exam: PRESENT: dry, intact, warm. ABSENT: cyanosis, rash Results Laboratory Results: WBC 7.3 10^3/uL (4.0-10.5) 11/06/19 05:09 RBC 3.21 10^6/uL (3.72-5.28) L 11/06/19 05:09 Hgb 9.6 g/dL (12.0-15.5) L 11/06/19 05:09 Hct 28.8 % (36.0-47.0) L 11/06/19 05:09 MCV 90 fl (80-97) 11/06/19 05:09 MCH 30.0 pg (27.0-33.4) 11/06/19 05:09 MCHC 33.5 g/dL (32.0-36.0) 11/06/19 05:09 RDW 15.6 % (11.5-14.0) H 11/06/19 05:09 Plt Count 180 10^3/uL (150-450) 11/06/19 05:09 Lymph % (Auto) 19.5 % (13-45) 11/05/19 05:45 [place] % (Auto) 6.9 % (3-13) 11/05/19 05:45 Eos % (Auto) 0.1 % (0-6) 11/05/19 05:45 Baso % (Auto) 0.3 % (0-2) 11/05/19 05:45 Absolute Neuts (auto) 6.3 10^3/uL (1.7-8.2) 11/05/19 05:45 Absolute Lymphs (auto) 1.7 10^3/uL (0.5-4.7) 11/05/19 05:45 Absolute Monos (auto) 0.6 10^3/uL (0.1-1.4) 11/05/19 05:45 Absolute Eos (auto) 0.0 10^3/uL (0.0-0.6) 11/05/19 05:45 Absolute Basos (auto) 0.0 10^3/uL (0.0-0.2) 11/05/19 05:45 Seg Neutrophils % 73.2 % (42-78) 11/05/19 05:45 PT 12.9 SEC (11.4-15.4) 11/04/19 19:42 INR 0.97 11/04/19 19:42 APTT 22.4 SEC (23.5-35.8) L 11/04/19 19:42 Carbonic Acid 1.32 mmol/L (1.05-1.35) 11/05/19 08:42 HCO3/H2CO3 Ratio 20:1 11/05/19 08:42 ABG pH 7.40 (7.35-7.45) 11/05/19 08:42 ABG pCO2 44.0 mmHg (35-45) 11/05/19 08:42 ABG pO2 169.7 mmHg (80-100) H 11/05/19 08:42 ABG HCO3 26.9 mmol/L (20-24) H 11/05/19 08:42 ABG Total CO2 28.2 mmol/L (21-25) H 11/05/19 08:42 ABG O2 Saturation 99.1 % (94-98) H 11/05/19 08:42 ABG Base Excess 1.9 mmol/L 11/05/19 08:42 FiO2 3L 11/05/19 08:42 Sodium 136.2 mmol/L (137-145) L 11/06/19 05:09 Potassium 3.7 mmol/L (3.6-5.0) 11/06/19 05:09 Chloride 104 mmol/L (98-107) 11/06/19 05:09 Carbon Dioxide 29 mmol/L (22-30) 11/06/19 05:09 Anion Gap 3 (5-19) L 11/06/19 05:09 BUN 18 mg/dL (7-20) 11/06/19 05:09 Creatinine 0.60 mg/dL (0.52-1.25) 11/06/19 05:09 Est GFR ( Amer) > 60 (>60) 11/06/19 05:09 Est GFR (MDRD) Non-Af > 60 (>60) 11/06/19 05:09 Glucose 80 mg/dL (75-110) 11/06/19 05:09 POC Glucose 124 mg/dL (70-110) H 11/04/19 19:40 Hemoglobin A1c % 4.9 % (4.7-6.0) 11/05/19 05:45 Calcium 8.5 mg/dL (8.4-10.2) 11/06/19 05:09 Total Bilirubin 0.3 mg/dL (0.2-1.3) 11/04/19 19:42 Direct Bilirubin 0.0 mg/dL (0.0-0.4) 11/04/19 19:42 Neonat Total Bilirubin Not Reportable 11/04/19 19:42 Neonat Direct Bilirubin Not Reportable 11/04/19 19:42 Neonat Indirect Bili Not Reportable 11/04/19 19:42 AST 42 U/L (14-36) H 11/04/19 19:42 ALT 24 U/L (<35) 11/04/19 19:42 Alkaline Phosphatase 97 U/L (38-126) 11/04/19 19:42 Creatine Kinase 59 U/L (30-135) 11/04/19 19:42 CK-MB (CK-2) 2.08 ng/mL (<4.55) 11/04/19 19:42 Troponin I 0.016 ng/mL 11/04/19 19:42 Total Protein 6.4 g/dL (6.3-8.2) 11/04/19 19:42 Albumin 3.6 g/dL (3.5-5.0) 11/04/19 19:42 Prealbumin 16.9 mg/dL (17.6-36.0) L 11/05/19 05:45 11/04/19 19:42 CK-MB (CK-2) 2.08 Troponin I 0.016 Impressions: Chest X-Ray 11/04/19:26 IMPRESSION: Chronic lung changes with no acute cardiopulmonary findings. Head CT 11/04/19: IMPRESSION: NORMAL BRAIN CT WITHOUT CONTRAST. EVIDENCE OF ACUTE STROKE: NO. Carotid Doppler Study 11/05/19 21:29 IMPRESSION: Limited evaluation due to heavily calcified vessels. 50 to 69% stenosis bilaterally. 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 POST CATARACT SURGERY. OTHERWISE, UNREMARKABLE MRI OF THE BRAIN WITHOUT AND WITH INTRAVENOUS GADOLINIUM CONTRAST. EVIDENCE OF ACUTE STROKE: NO. Plan Plan of Treatment: Patient is discharged home, in stable condition, into the care of family members with resumption of home health services. Discussed discharge instructions with the patient's granddaughter, Lizzy Isbell, by phone on day of discharge; discussed TIA/Seizure work up and findings, indications for Megace and Keppra, feeding recommendations, and neurology outia tient follow-up recommendations. Patient should follow-up with her primary care provider within 1 week. Recommend that she follow-up with Dr. Medel, [facility], at the earliest available appointment. Continue Keppra until directed to discontinue by neurology. Continue weaning Xanax; albeit on a slower schedule. Take other medication as prescribed. Eat a heart healthy diet. Do NOT smoke. Return to emergency department as needed for concerning symptoms. Time Spent: Greater than 30 Minutes Stroke Is this a Stroke Patient?: No Acute Heart Failure - Is this a Heart Failure Patient?: No
== END 2019-11-09 01:00 | disposition home health service (06) | DRG 896 ==
LOC: ER 19:24 → EH 21:39 → 3W 23:54 → UNDODISIN 11-08 14:30
PROVIDERS: ADMIT Internal Medicine; ATTEND Registered Nurse
DX: F13.239 Sedative, hypnotic or anxiolytic dependence with withdrawal, unspecified (principal); L89.153 Pressure ulcer of sacral region, stage 3; G45.9 Transient cerebral ischemic attack, unspecified; E46 Unspecified protein-calorie malnutrition; R64 Cachexia; Z68.1 Body mass index [BMI] 19.9 or less, adult; R56.9 Unspecified convulsions; T42.4X5A Adverse effect of benzodiazepines, initial encounter; I65.23 Occlusion and stenosis of bilateral carotid arteries; I10 Essential (primary) hypertension; D50.9 Iron deficiency anemia, unspecified; I27.20 Pulmonary hypertension, unspecified; I35.1 Nonrheumatic aortic (valve) insufficiency; I25.10 Atherosclerotic heart disease of native coronary artery without angina pectoris; J44.9 Chronic obstructive pulmonary disease, unspecified; K21.9 Gastro-esophageal reflux disease without esophagitis; F41.9 Anxiety disorder, unspecified; Y92.018 Other place in single-family (private) house as the place of occurrence of the external cause; I25.2 Old myocardial infarction; Z79.01 Long term (current) use of anticoagulants; Z79.899 Other long term (current) drug therapy; Z95.5 Presence of coronary angioplasty implant and graft
CPT/HCPCS: 36415; 70450; 70553; 71045; 80048; 80053; 82550; 82553; 82803; 82962; 83036; 84134; 84484; 85025; 85027; 85610; 85730; 93005; 93010; 93306; 93880; 94640; 94799; 95819; 99285; A9576; J0360; J1644; J1953; J2060; J3360; J3490

== ENCOUNTER 2019-11-21 05:53 | Emergency (ER) | payer MEDICARE ==
[2019-11-21 06:32] LABS: ABSOLUTE EOSINOPHILS # (AUTO) 0.1 10^3/uL (0.0-0.6); ABSOLUTE LYMPHOCYTES (AUTO) 2.1 10^3/uL (0.5-4.7); ABSOLUTE MONOCYTES (AUTO) 0.6 10^3/uL (0.1-1.4); ABSOLUTE NEUT (AUTO) 8.9 10^3/uL (1.7-8.2); BASOPHILS % (AUTO) 0.4 % (0-2); EOSINOPHILS % (AUTO) 0.6 % (0-6); HEMATOCRIT 29.3 % (36.0-47.0); HEMOGLOBIN 9.4 g/dL (12.0-15.5); MEAN CORPUSCULAR HEMOGLOBIN 29.2 pg (27.0-33.4); MEAN CORPUSCULAR HGB CONC 32.3 g/dL (32.0-36.0); MEAN CORPUSCULAR VOLUME 91 fl (80-97); MONOCYTES % (AUTO) 5.1 % (3-13); PLATELET COUNT 245 10^3/uL (150-450); RED BLOOD COUNT 3.24 10^6/uL (3.72-5.28); RED CELL DISTRIBUTION WIDTH 15.5 % (11.5-14.0); SEGMENTED NEUTROPHILS % (AUTO) 75.9 % (42-78); TOTAL CELLS COUNTED % (AUTO) 100 %; WHITE BLOOD COUNT 11.8 10^3/uL (4.0-10.5)
[2019-11-21 06:49] LABS: ALBUMIN 3.2 g/dL (3.5-5.0); ALKALINE PHOSPHATASE 184 U/L (38-126); ANION GAP 5 (5-19); ASPARTATE AMINO TRANSFERASE 37 U/L (14-36); BILIRUBIN,TOTAL 0.4 mg/dL (0.2-1.3); BLOOD UREA NITROGEN 17 mg/dL (7-20); CALCIUM 8.7 mg/dL (8.4-10.2); CARBON DIOXIDE 29 mmol/L (22-30); CHLORIDE 107 mmol/L (98-107); CREATINE KINASE 39 U/L (30-135); GLUCOSE 142 mg/dL (75-110); POTASSIUM 4.5 mmol/L (3.6-5.0); TOTAL PROTEIN 6.2 g/dL (6.3-8.2)
[2019-11-21 07:00] LABS: CREATINE KINASE MB 1.29 ng/mL (<4.55)
[2019-11-21 07:07] LABS: TROPONIN I 0.048 ng/mL
[2019-11-21] MEDS ORDERED: ALBUTEROL SULFATE 0.083% NEB 2.5 MG/3 ML AMPUL NEB ONE (07:15)
[2019-11-21] MEDS ORDERED: NITROGLYCERIN 2% OINTMENT 1 GM PACKET TP ONE (07:21)
[2019-11-21 07:32] LABS: INTERNATIONAL RATION (INR) 1.03; PROTHROMBIN TIME 13.5 SEC (11.4-15.4)
[2019-11-21 07:33] LABS: PARTIAL THROMBOPLASTIN TIME 25.4 SEC (23.5-35.8)
--- NOTE | 2019-11-21 07:45 | RADIOLOGY REPORT (SQ) ---
EXAM DESCRIPTION: XR CHEST 1 VIEW COMPLETED DATE/TME: 11/21/2019 06:10 CLINICAL HISTORY: 79 years Female, chest pain, SOB COMPARISON: 11/04/19 NUMBER OF VIEWS/TECHNIQUE: 1/AP FINDINGS: Moderate right basilar opacity-effusion. Atherosclerosis. Emphysematous hyperinflation. Mild interstitial markings.Normal cardiac silhouette size. No pneumothorax. Stable bony thorax. IMPRESSION: Moderate right basilar opacity-effusion. Interval worsening.
[2019-11-21] MEDS ORDERED: NITROGLYCERIN/D5W 50 MG/250 ML RTUINJ IV PRN ×2 (08:53→09:32)
[2019-11-21] MEDS ORDERED: METOPROLOL TARTRATE PF/INJ 5 MG/5 ML SDV IV ONE (08:54)
[2019-11-21] MEDS ORDERED: HEPARIN SOD (PORCINE) 1,000 UNIT/ML 10 ML VIAL IV ONE (08:55)
[2019-11-21] MEDS ORDERED: HEPARIN SODIUM,PORCINE/D5W 25,000 UNIT/250 ML RTUINJ IV PRN (08:55)
--- NOTE | 2019-11-21 09:48 | PDOC CONSULTATION ---
Consultation Consult Date: 11/21/19 Attending physician:: OLI MUNOZ Provider Consulted: MARIANA NI Consult reason:: Chest pain History of Present Illness Admission Date/PCP: ROSALIND CHILDRESS PA-C History of Present Illness: Melani Harmon is a 79-year-old female with history of cachexia, nonobstructive carotid disease, TIA in October 2019, hypertension, hyperlipidemia, COPD, coronary artery disease status post stent to unknown vessel in 2006 at a hospital in [place], [place], tobacco use of 1 pack/day for more than 60 years who quit 3 months ago and who is consulted to our service for evaluation of chest pain. The patient had been in her usual state of health until approximately 0300 this morning when she woke up with chest tightness, localized to the upper chest, associated with shortness of breath and palpitations, with radiation to the back and without associated diaphoresis, lightheadedness, syncope or presyncope. Her PCI in 2006 was prompted by similar symptoms. She is evaluated in the emergency room where she continues to have chest tightness although improved since presentation. Physical exam on 11/21/2019: GENERAL: Pleasant and conversational. Oriented x3 with normal mood. Cachectic and frail. Hypertensive. No acute distress. HEENT: Normocephalic, atraumatic. Pupils equal. Sclerae anicteric. Oropharynx moist. NECK: No JVD. No carotid bruits. LUNGS: Clear to auscultation bilaterally. Normal respiratory effort without the use of accessory muscles or intercostal retractions. CARDIOVASCULAR: Mildly tachycardic. Regular rate and rhythm, normal S1 and S2 without murmurs, rubs, or gallops. PMI not displaced. EXTREMITIES: No edema, no cyanosis, no clubbing. +2 pulses distally. SKIN: No lesions or rashes. MUSCULOSKELETAL: No chest tenderness to palpation. NEUROLOGIC: Nonfocal. No gross sensory or motor deficits bilateral upper or lower extremities. Past Medical History Cardiac Medical History: Reports: Coronary Artery Disease, Myocardial Infarction, Hyperlipidema, Hypertension Pulmonary Medical History: Reports: Chronic Obstructive Pulmonary Disease (COPD) GI Medical History: Reports: Gastroesophageal Reflux Disease Psychiatric Medical History: Denies: Depression Past Surgical History Past Surgical History: Reports: Coronary Stent Social History Smoking Status: Former Smoker Frequency of Alcohol Use: None Drugs: None Family History Family History: Other - Unobtainable Parental Family History Reviewed: Yes Children Family History Reviewed: Yes Sibling(s) Family History Reviewed.: Yes Medication/Allergy Home Medications: Albuterol Sulfate [Ventolin Hfa 8 gm Mdi] 1 puff IH Q4HP PRN 11/05/19 Alprazolam [Xanax 0.25 mg Tablet] 0.25 mg PO QAM 11/05/19 Aspirin [Ecotrin 81 mg EC Tablet] 81 mg PO DAILY 11/05/19 Atorvastatin Calcium [Lipitor 40 mg Tablet] 40 mg PO QHS 11/05/19 Bisacodyl [Dulcolax 5 mg Tablet] 5 mg PO DAILYP PRN 11/05/19 Budesonide [Pulmicort Neb 0.5 mg/2 ml Ampul] 0.5 mg NEB Q12 11/05/19 Clopidogrel Bisulfate [Plavix 75 mg Tablet] 75 mg PO DAILY 11/05/19 Famotidine [Pepcid 20 mg Tablet] 20 mg PO DAILY 11/05/19 Ipratropium [place] [Atrovent 0.02% Neb 0.5 mg/2.5 ml Ampul] 1 vial NEB BIDP PRN 11/05/19 Mirtazapine [Remeron 15 mg Tablet] 7.5 mg PO QHS 11/05/19 Nitroglycerin [Nitro-Dur 10 mg (0.4MG/Hr) Transdermal Patch] 0.4 mg TOP DAILY 11/05/19 Nitroglycerin [Nitrostat 0.4 mg (1/150 Gr) Tabs 25/Bottle] 0.4 mg SL Q5MP PRN 11/05/19 Lidocaine [Lidoderm 5% (700 mg) Transdermal Patch] 1 patch TP DAILY #30 adh..patch 11/07/19 Megestrol Acetate [Megace [place] 400 mg/10 ml Udcup] 200 mg PO DAILY #30 udc 11/07/19 Metoprolol Tartrate [Lopressor 50 mg Tablet] 50 mg PO Q12 #60 tablet 11/07/19 Alprazolam [Xanax 0.25 mg Tablet] 0.25 mg PO ASDIR PRN #16 tablet 11/08/19 Levetiracetam [Keppra 500 mg Tablet] 500 mg PO Q12 #60 tablet 11/08/19 Allergies/Adverse Reactions: No Known Allergies Allergy (Unverified 11/04/19 21:07) Physical Exam Vital Signs: Temp Pulse Resp BP Pulse Ox 97.8 F 102 H 22 H 169/76 H 100 11/21/19 05:54 11/21/19 09:00 11/21/19 09:00 11/21/19 09:00 11/21/19 09:00 Intake & Output 11/20/19 11/21/19 11/22/19 06:59 06:59 06:59 Weight 34.3 kg Results Laboratory Results: 11/21/19 06:15 11/21/19 06:15 11/21/19 11/21/19 06:15 06:15 WBC 11.8 H RBC 3.24 L Hgb 9.4 L Hct 29.3 L MCV 91 MCH 29.2 MCHC 32.3 RDW 15.5 H Plt Count 245 Seg Neutrophils % 75.9 Sodium 140.7 Potassium 4.5 Chloride 107 Carbon Dioxide 29 Anion Gap 5 BUN 17 Creatinine 0.52 Est GFR ( Amer) > 60 Glucose 142 H Calcium 8.7 Total Bilirubin 0.4 AST 37 H Alkaline Phosphatase 184 H Total Protein 6.2 L Albumin 3.2 L 11/21/19 11/21/19 06:15 06:15 Creatine Kinase 39 CK-MB (CK-2) 1.29 Troponin I 0.048 Impressions: Chest X-Ray 11/21/19 06:10 IMPRESSION: Moderate right basilar opacity-effusion. Interval worsening. 11/21/19 06:15 11/21/19 06:15 MCV 91 fl (80-97) 11/21/19 06:15 MCH 29.2 pg (27.0-33.4) 11/21/19 06:15 MCHC 32.3 g/dL (32.0-36.0) 11/21/19 06:15 RDW 15.5 % (11.5-14.0) H 11/21/19 06:15 Seg Neutrophils % 75.9 % (42-78) 11/21/19 06:15 Chloride 107 mmol/L (98-107) 11/21/19 06:15 Carbon Dioxide 29 mmol/L (22-30) 11/21/19 06:15 Anion Gap 5 (5-19) 11/21/19 06:15 Est GFR ( Amer) > 60 (>60) 11/21/19 06:15 Glucose 142 mg/dL (75-110) H 11/21/19 06:15 Calcium 8.7 mg/dL (8.4-10.2) 11/21/19 06:15 Total Bilirubin 0.4 mg/dL (0.2-1.3) 11/21/19 06:15 AST 37 U/L (14-36) H 11/21/19 06:15 Alkaline Phosphatase 184 U/L (38-126) H 11/21/19 06:15 Total Protein 6.2 g/dL (6.3-8.2) L 11/21/19 06:15 Albumin 3.2 g/dL (3.5-5.0) L 11/21/19 06:15 11/21/19 11/21/19 06:15 06:15 Creatine Kinase 39 CK-MB (CK-2) 1.29 Troponin I 0.048 Assessment & Plan - Diagnosis (1) Chest pain Plan: 79-year-old female with known coronary artery disease and multiple other cardiac risk factors who has been having chest tightness since 3:00 this morning. Her chest pain is suggestive of unstable angina and her first troponin is already in the indeterminate range. She continues to be hypertensive and still having low- grade chest tightness similar to her presentation in 2006. This patient will be treated as unstable angina and will be transferred to [facility] for further management. She looks very frail and cachectic however she once everything done to include invasive procedures. Recommendations: -Discontinue Nitropaste. -Start nitroglycerin IV. -IV anticoagulation. -The patient does have some evidence of heart failure on chest x-ray therefore we will hold off on beta-ted. -Transfer to [facility].
[2019-11-21 10:03] LABS: APPEARANCE,URINE CLEAR; BILIRUBIN,URINE NEGATIVE (NEGATIVE); COLOR,URINE YELLOW; GLUCOSE, URINE NEGATIVE (NEGATIVE); KETONES,URINE NEGATIVE (NEGATIVE); LEUKOCYTE ESTERASE,URINE TRACE (NEGATIVE); NITRITE,URINE NEGATIVE (NEGATIVE); PROTEIN,URINE 100 mg/dL (NEGATIVE); URINE SPECIFIC GRAVITY 1.013; UROBILINOGEN,URINE NEGATIVE mg/dL (<2.0)
[2019-11-21 11:12] LABS: PROTHROMBIN TIME 14.3 SEC (11.4-15.4)
[2019-11-21 11:44] LABS: PARTIAL THROMBOPLASTIN TIME 85.6 SEC (23.5-35.8)
[2019-11-21] MEDS ORDERED: HEPARIN SOD (PORCINE) 1,000 UNIT/ML 10 ML VIAL IV PRN (11:57)
--- NOTE | 2019-11-21 12:09 | ER Document Report ---
Entered by RAYMOND ZHONG SCRIBE 11/21/19 0657 Acting as scribe for:OLI MUNOZ MD ED General - General Chief Complaint: Chest Pressure Stated Complaint: CHEST PAIN Primary Care Provider: ROSALIND CHILDRESS PA-C [Primary Care Provider] - Follow up as needed Information source: Patient Notes: This 79-year-old female presents to the emergency department via EMS complaining of chest tightness that began this morning. Patient explains that she woke from her sleep to use the bathroom. Patient states that while she was sitting on her bedside toilet, she began to feel short of breath, her heart racing and chest tightness. Patient describes the chest pain as on top of chest, a sore pressure and "grabbing". Patient states that she administered a breathing treatment and put a nitro patch on with no relief. Patient states that she called EMS due to no relief and having difficulty breathing. Patient states that she took a 325 mg Aspirin prior to EMS arriving. Patient was given 5 sprays of nitro, 1 sublingual nitro, Zofran and placed on BiPAP en route to the emergency department. Patient states that she felt normal and completed her normal activities yesterday during the day. Patient is on 3L of oxygen via nasal cannula at home. Patient reports nausea and chills. Patient states that she is feeling better after the treatments but still feels chest pressure when she speaks or takes a deep breath. Patient states that she was here in the emergency department 2-3 weeks ago because she "went blind and was fighting the EMS workers". Patient states she was hospitalized and was discharge without being told of a cause to her "blindness". - Related Data Allergies/Adverse Reactions: No Known Allergies Allergy (Unverified 11/04/19 21:07) Home Medications: Atorvastatin. Bisacodyl. Budesonide. Clopidogrel. Famotidine. Keppra. Lopressor. Mirtazapine Past Medical History - General Information source: Patient - Social History Smoking Status: Former Smoker - quit 3 months ago- 2019 Cigarette use (# per day): No Chew tobacco use (# tins/day): No Lives with: Family Family History: Reviewed & Not Pertinent Patient has homicidal ideation: No - Past Medical History Cardiac Medical History: Reports: Hx Coronary Artery Disease, Hx Heart Attack, Hx Hypercholesterolemia, Hx Hypertension Pulmonary Medical History: Reports: Hx COPD Malignancy Medical History: Reports: Other - Endometrial Cancer- 1970 GI Medical History: Reports: Hx Gastroesophageal Reflux Disease Musculoskeletal Medical History: Reports Hx Restless Leg Syndrome Past Surgical History: Reports: Hx Cardiac Surgery, Hx Coronary Stent - X1 (200 7), Hx Hysterectomy Review of Systems - Review of Systems Constitutional: See HPI, Chills EENT: No symptoms reported Cardiovascular: See HPI, Chest pain, Heart racing Respiratory: See HPI, Short of breath Gastrointestinal: No symptoms reported Genitourinary: No symptoms reported Female Genitourinary: No symptoms reported Musculoskeletal: No symptoms reported Skin: No symptoms reported Hematologic/Lymphatic: No symptoms reported Neurological/Psychological: No symptoms reported -: Yes All other systems reviewed and negative Physical Exam - Vital signs Vitals: Temp 97.8 F 11/21/19 05:54 - Notes Notes: Physical Exam: General: Alert. Thin. HEENT: Normocephalic. Atraumatic. PERRL. Extraocular movements intact. Oropharynx clear. Neck: Supple. Non-tender. Respiratory: Mild respiratory distress. Diminished breath sounds in the bases. Trace expository wheeze. Cardiovascular: Tachycardic. Abdominal: Normal Inspection. Non-tender. No distension. Normal Bowel Sounds. Back: No gross abnormalities. Extremities: Moves all four extremities. Upper extremities: Normal inspection. Normal ROM. Lower extremities: Normal inspection. No edema. Normal ROM. Neurological: Normal cognition. AAOx4. Normal speech. Psychological: Normal affect. Normal Mood. Skin: Warm. Dry. Normal color. Course - Re-evaluation Re-evalutation: 11/21/19 12:04 Patient resting comfortably at this time not showing any signs of respiratory distress states her chest discomfort has improved. - Vital Signs Vital signs: Temp Pulse Resp BP Pulse Ox 97.8 F 104 H 21 H 182/76 H 100 11/21/19 05:54 11/21/19 10:20 11/21/19 11:45 11/21/19 11:45 11/21/19 11:45 11/21/19 12:04 Vital signs shows systolic blood pressure 182 diastolic 76 pulse ox 100% with a pulse of 104 afebrile respiratory rate 21. - Laboratory Result Diagrams: 11/21/19 06:15 11/21/19 06:15 Laboratory results interpreted by me: 11/21/19 11/21/19 11/21/19 06:15 06:15 09:35 WBC 11.8 H RBC 3.24 L Hgb 9.4 L Hct 29.3 L RDW 15.5 H Absolute Neuts (auto) 8.9 H APTT Glucose 142 H AST 37 H Alkaline Phosphatase 184 H Total Protein 6.2 L Albumin 3.2 L Urine Protein 100 H Urine Blood SMALL H Ur Leukocyte Esterase TRACE H 11/21/19 10:53 WBC RBC Hgb Hct RDW Absolute Neuts (auto) APTT 85.6 H D Glucose AST Alkaline Phosphatase Total Protein Albumin Urine Protein Urine Blood Ur Leukocyte Esterase 11/21/19 12:05 Laboratory shows elevated troponin initial 0.04 8 repeat troponin shows elevation up to 0.058. Laboratory values consistent with an acute coronary syndrome with chest discomfort. - Diagnostic Test Radiology reviewed: Image reviewed, Reports reviewed Radiology results interpreted by me: 11/21/19 12:07 Chest x-ray shows a new moderate right opacity or effusion in the right base otherwise no other acute process. - EKG Interpretation by Me Additional EKG results interpreted by me: 11/21/19 12:08 Twelve-lead EKG shows sinus tachycardia rate of 107 left ventricular hypertrophy with LVH voltage criteria and reciprocal changes. Critical Care Note - Critical Care Note Total time excluding time spent on procedures (mins): 45 - Management of chest pain COPD inpatient with wheezing and an elevated troponin. With known coronary artery disease. Management of hypertension on arrival as well. Consultations with local quality process engineer Dr. Chandra. Also coordinating discussions with the transfer team and the admitting doctor at the receiving hospital. Discharge - Discharge Clinical Impression: Chest pain, Acute coronary syndrome, Elevated troponin, COPD (chronic obstructive pulmonary disease) Condition: Critical Disposition: [facility] Referrals: ROSALIND CHILDRESS PA-C [Primary Care Provider] - Follow up as needed I personally performed the services described in the documentation, reviewed and edited the documentation which was dictated to the scribe in my presence, and it accurately records my words and actions.
--- NOTE | 2019-11-21 12:42 | EKG REPORT ---
SEVERITY:- ABNORMAL ECG - SINUS TACHYCARDIA LVH WITH SECONDARY REPOLARIZATION ABNORMALITY : Confirmed by: Dash Villeda 21-Nov-2019 12:40:57
[2019-11-21 13:16] VITALS: BP 169/101
== END 2019-11-21 12:50 | disposition short-term general hospital (02) ==
LOC: ER 05:53
DX: I24.9 Acute ischemic heart disease, unspecified (principal); J44.9 Chronic obstructive pulmonary disease, unspecified; R07.9 Chest pain, unspecified; R79.89 Other specified abnormal findings of blood chemistry; I10 Essential (primary) hypertension
CPT/HCPCS: 93005; 96376; 94640; 99285; 96375; 96365; 96366; 96368; 36415; 82553; 82550; 85025; 85610; 85730; 80053; 81001; 84484; 71045; 93010; J1644 ×2; A9270 ×2; J3490 ×2; 82270

== ENCOUNTER 2020-01-02 22:06 | Observation (INO) | payer MEDICARE ==
[2020-01-02] MEDS ORDERED: RINGERS SOLUTION,LACTATED 1,000 ML IV ONE (23:05)
--- NOTE | 2020-01-02 23:08 | ER Document Report ---
ED General - General Chief Complaint: Swallowed Foreign Body Stated Complaint: FOREIGN OBJECT IN THROAT Time Seen by Provider: 01/02/20 22:48 Primary Care Provider: ROSALIND CHILDRESS PA-C [Primary Care Provider] - Follow up as needed - HPI Notes: Patient is a 79-year-old female presents to the emergency department for evaluation. She was eating a leftover hamburger and fries from lunch at around 7:30 PM, when it became stuck. She states that she has not been able to swallow any of her secretions or fluids since then. She has had a few episodes of emesis. She has some minor pain in her throat but denies any other pain. She does have a history of requiring esophageal dilation in the past. She is on aspirin and Plavix, does not take any other blood thinners. She is had no fevers or chills. She has not had her medications for the night. - Related Data Allergies/Adverse Reactions: No Known Allergies Allergy (Unverified 11/04/19 21:07) Home Medications: Lidocaine patch, acetaminophen, aspirin 81 mg daily, atorvastatin 40 mg daily, budesonide twice a day, Plavix 75 mg daily, famotidine 20 mg daily, ferrous sulfate 325 mg daily, ipratropium 18 mcg as needed, isosorbide mononitrate daily, Keppra 500 mg twice daily, Lasix 40 mg daily, lisinopril 2.5 mg daily, Lopressor 75 mg twice daily, mirtazapine 15 mg at bedtime, nitroglycerin as needed, oxygen 3 L per nasal cannula continuous, Xanax 0.25 mg as needed for anxiety Past Medical History - General Information source: Patient - Social History Smoking Status: Former Smoker Family History: Reviewed & Not Pertinent - Past Medical History Cardiac Medical History: Reports: Hx Coronary Artery Disease, Hx Heart Attack, Hx Hypercholesterolemia, Hx Hypertension Pulmonary Medical History: Reports: Hx COPD Neurological Medical History: Reports: Hx Cerebrovascular Accident GI Medical History: Reports: Hx Gastroesophageal Reflux Disease Psychiatric Medical History: Denies: Hx Depression Past Surgical History: Reports: Hx Cardiac Surgery, Hx Coronary Stent - X1 (2006), Hx Hysterectomy Review of Systems - Review of Systems EENT: See HPI Gastrointestinal: See HPI -: Yes All other systems reviewed and negative Physical Exam - Vital signs Vitals: Temp Pulse Resp BP Pulse Ox 98.5 F 108 H 20 167/74 H 100 01/02/20 22:14 01/02/20 22:14 01/02/20 22:14 01/02/20 22:14 01/02/20 22:14 - Notes Notes: There is a frail-appearing 79-year-old female who appears her stated age, mild amount of distress. She seems uncomfortable, intermittently spitting into an emesis bag. Vital signs reviewed, please refer to chart. Head is normocephalic, atraumatic. Pupils equal round, reactive to light. Neck is supple without meningismus. Heart is regular rate and rhythm. Lungs are clear to auscultation bilaterally. Abdomen is scaphoid, nontender, normoactive bowel sounds throughout. Extremities without cyanosis, clubbing. Posterior calves are nontender. Peripheral pulses are equal. Skin is warm and dry. Patient is awake, alert, neurological exam is nonfocal. Course - Re-evaluation Re-evalutation: 01/02/20 23:36 Patient presents to the emergency department for evaluation. She has a history of esophageal dilation, is very frail. I spoke with Dr. Macario, who stated he would come and evaluate the patient. I talked the patient at length, she agreed to have endoscopy done emergently here. Rapid COVID and blood work ordered, IV fluids ordered. Patient will be taken to the endoscopy suite. - Vital Signs Vital signs: Temp Pulse Resp BP Pulse Ox 98.5 F 108 H 20 167/74 H 100 01/02/20 22:14 01/02/20 22:14 01/02/20 22:14 01/02/20 22:14 01/02/20 22:14 - Laboratory Result Diagrams: 01/02/20 23:55 01/02/20 23:55 Discharge - Discharge Clinical Impression: Esophageal obstruction due to food impaction Condition: Stable Disposition: OTHER Referrals: ROSALIND CHILDRESS PA-C [Primary Care Provider] - Follow up as needed
[2020-01-02] MEDS ORDERED: RINGERS SOLUTION,LACTATED 1,000 ML IV PRN (23:40)
[2020-01-03 00:14] LABS: ABSOLUTE EOSINOPHILS # (AUTO) 0.1 10^3/uL (0.0-0.6); ABSOLUTE LYMPHOCYTES (AUTO) 1.9 10^3/uL (0.5-4.7); ABSOLUTE MONOCYTES (AUTO) 0.6 10^3/uL (0.1-1.4); BASOPHILS % (AUTO) 0.4 % (0-2); EOSINOPHILS % (AUTO) 2.2 % (0-6); HEMATOCRIT 29.4 % (36.0-47.0); HEMOGLOBIN 9.7 g/dL (12.0-15.5); LYMPHOCYTES % (AUTO) 28.6 % (13-45); MEAN CORPUSCULAR HEMOGLOBIN 29.6 pg (27.0-33.4); MEAN CORPUSCULAR HGB CONC 32.8 g/dL (32.0-36.0); MEAN CORPUSCULAR VOLUME 90 fl (80-97); MONOCYTES % (AUTO) 8.4 % (3-13); PLATELET COUNT 149 10^3/uL (150-450); RED BLOOD COUNT 3.27 10^6/uL (3.72-5.28); RED CELL DISTRIBUTION WIDTH 15.2 % (11.5-14.0); SEGMENTED NEUTROPHILS % (AUTO) 60.4 % (42-78); TOTAL CELLS COUNTED % (AUTO) 100 %; WHITE BLOOD COUNT 6.6 10^3/uL (4.0-10.5)
[2020-01-03 00:21] LABS: ALBUMIN 3.7 g/dL (3.5-5.0); ALKALINE PHOSPHATASE 180 U/L (38-126); ASPARTATE AMINO TRANSFERASE 40 U/L (14-36); BILIRUBIN,TOTAL 0.3 mg/dL (0.2-1.3); BLOOD UREA NITROGEN 22 mg/dL (7-20); CARBON DIOXIDE 34 mmol/L (22-30); CHLORIDE 106 mmol/L (98-107); GLUCOSE 128 mg/dL (75-110); POTASSIUM 4.2 mmol/L (3.6-5.0); TOTAL PROTEIN 6.8 g/dL (6.3-8.2)
[2020-01-03 00:26] LABS: ANION GAP 2 (5-19)
[2020-01-03] MEDS ORDERED: PROPOFOL INJ 200 MG/20 ML VIAL IV ONE (01:08)
[2020-01-03] MEDS ORDERED: MIDAZOLAM 2 MG/2 ML INJ ONE (02:10)
[2020-01-03] MEDS ORDERED: KETAMINE HCL INJ 500 MG/10 ML VIAL ONE (02:10)
[2020-01-03] MEDS ORDERED: ONDANSETRON HCL INJ/PF 4 MG/2 ML SDV IV PRN (02:29)
--- NOTE | 2020-01-03 02:48 | PDOC H&P ---
History of Present Illness Admission Date/PCP: 01/03/20 00:57 ROSALIND CHILDRESS PA-C Patient complains of: History of esophageal stricture. Impacted food bolus in the esophagus, with obstruction. History of Present Illness: TIANA REESE is a 79 year old female who was eating leftover hamburger today. She swallowed a large piece of meat, which became lodged in her esophagus. Since that time, she has been unable to swallow saliva, water, medications, or anything else. She denies headache, chest pain, malaise, fatigue, hematemesis, hematochezia, melena, blurry vision, or dizziness. She has baseline shortness of breath due to COPD and home oxygen requirement. Her shortness of breath is no worse than usual. Nothing makes her symptoms better. Attempting to swallow makes them worse. Past Medical History Cardiac Medical History: Reports: Coronary Artery Disease, Myocardial Infarction, Hyperlipidema, Hypertension Pulmonary Medical History: Reports: Chronic Obstructive Pulmonary Disease (COPD) GI Medical History: Reports: Gastroesophageal Reflux Disease Psychiatric Medical History: Denies: Depression Past Surgical History Past Surgical History: Reports: Coronary Stent - X1 (2006), Hysterectomy Social History Smoking Status: Former Smoker Frequency of Alcohol Use: None Drugs: None Family History Family History: Reviewed & Not Pertinent Parental Family History Reviewed: Yes Children Family History Reviewed: Yes Sibling(s) Family History Reviewed.: Yes Medication/Allergy Home Medications: Albuterol Sulfate [Ventolin Hfa 8 gm Mdi] 1 puff IH Q4HP PRN 11/05/19 Alprazolam [Xanax 0.25 mg Tablet] 0.25 mg PO QAM 11/05/19 Aspirin [Ecotrin 81 mg EC Tablet] 81 mg PO DAILY 11/05/19 Atorvastatin Calcium [Lipitor 40 mg Tablet] 40 mg PO QHS 11/05/19 Bisacodyl [Dulcolax 5 mg Tablet] 5 mg PO DAILYP PRN 11/05/19 Budesonide [Pulmicort Neb 0.5 mg/2 ml Ampul] 0.5 mg NEB Q12 11/05/19 Clopidogrel Bisulfate [Plavix 75 mg Tablet] 75 mg PO DAILY 11/05/19 Famotidine [Pepcid 20 mg Tablet] 20 mg PO DAILY 11/05/19 Ipratropium [place] [Atrovent 0.02% Neb 0.5 mg/2.5 ml Ampul] 1 vial NEB BIDP PRN 11/05/19 Mirtazapine [Remeron 15 mg Tablet] 7.5 mg PO QHS 11/05/19 Nitroglycerin [Nitro-Dur 10 mg (0.4MG/Hr) Transdermal Patch] 0.4 mg TOP DAILY 11/05/19 Nitroglycerin [Nitrostat 0.4 mg (1/150 Gr) Tabs 25/Bottle] 0.4 mg SL Q5MP PRN 11/05/19 Lidocaine [Lidoderm 5% (700 mg) Transdermal Patch] 1 patch TP DAILY #30 adh..patch 11/07/19 Megestrol Acetate [Megace [place] 400 mg/10 ml Udcup] 200 mg PO DAILY #30 udc 11/07/19 Metoprolol Tartrate [Lopressor 50 mg Tablet] 50 mg PO Q12 #60 tablet 11/07/19 Alprazolam [Xanax 0.25 mg Tablet] 0.25 mg PO ASDIR PRN #16 tablet 11/08/19 Levetiracetam [Keppra 500 mg Tablet] 500 mg PO Q12 #60 tablet 11/08/19 Allergies/Adverse Reactions: No Known Allergies Allergy (Unverified 11/04/19 21:07) Review of Systems Constitutional: ABSENT: chills, fatigue, fever(s), headache(s), weakness Eyes: ABSENT: visual disturbances Ears: ABSENT: hearing changes Nose, Mouth, and Throat: ABSENT: sore throat Cardiovascular: ABSENT: chest pain Respiratory: PRESENT: other - Home O2 requirement, 3 L Gastrointestinal: PRESENT: dysphagia, other - Inability to swallow secretions. ABSENT: abdominal pain, bloating Genitourinary: ABSENT: dysuria Musculoskeletal: ABSENT: back pain Integumentary: ABSENT: pruritus, rash Neurological: ABSENT: confusion, convulsions, dizziness Psychiatric: ABSENT: anxiety, depression Endocrine: ABSENT: cold intolerance, heat intolerance Hematologic/Lymphatic: ABSENT: easy bleeding, easy bruising Physical Exam Vital Signs: Temp Pulse Resp BP Pulse Ox 98.5 F 108 H 20 165/73 H 100 01/02/20 22:14 01/02/20 22:14 01/02/20 22:14 01/03/20 00:00 01/03/20 00:01 Intake & Output 01/01/20 01/02/20 01/03/20 06:59 06:59 06:59 Intake Total 0 Output Total 75 Balance -75 Weight 31.751 kg General appearance: PRESENT: thin, other - Elderly Head exam: PRESENT: atraumatic, normocephalic Eye exam: PRESENT: EOMI, PERRLA. ABSENT: scleral icterus Mouth exam: PRESENT: moist, neck supple Neck exam: ABSENT: meningismus, tenderness, tracheal deviation Respiratory exam: PRESENT: unlabored. ABSENT: chest wall tenderness, tachypnea Cardiovascular exam: PRESENT: tachycardia Pulses: PRESENT: normal radial pulses Vascular exam: PRESENT: normal capillary refill. ABSENT: pallor GI/Abdominal exam: PRESENT: soft. ABSENT: distended, firm, tenderness Rectal exam: PRESENT: deferred Extremities exam: ABSENT: clubbing Musculoskeletal exam: ABSENT: deformity Neurological exam: PRESENT: alert, awake, oriented to person, oriented to place, oriented to time, oriented to situation, CN II-XII grossly intact. ABSENT: motor sensory deficit Psychiatric exam: ABSENT: agitated, anxious, depressed Focused psych exam: ABSENT: delusional Skin exam: ABSENT: cyanosis, erythema, jaundice Results Laboratory Results: 01/02/20 23:55 01/02/20 23:55 01/02/20 01/02/20 23:55 23:55 WBC 6.6 RBC 3.27 L Hgb 9.7 L Hct 29.4 L MCV 90 MCH 29.6 MCHC 32.8 RDW 15.2 H Plt Count 149 L Seg Neutrophils % 60.4 Sodium 142.2 Potassium 4.2 Chloride 106 Carbon Dioxide 34 H Anion Gap 2 L BUN 22 H Creatinine 0.69 Est GFR ( Amer) > 60 Glucose 128 H Calcium 9.0 Total Bilirubin 0.3 AST 40 H Alkaline Phosphatase 180 H Total Protein 6.8 Albumin 3.7 Assessment & Plan - Diagnosis (1) Esophageal obstruction due to food impaction Is this a current diagnosis for this admission?: Yes - Plan Summary Plan Summary: 79-year-old female with an impacted food bolus within the esophagus. The patient has a history of an esophageal stricture, requiring serial dilations. The patient has not seen a GI doctor in many months. She was eating today, and felt a piece of hamburger get stuck in her esophagus. She has been unable to tolerate any of her secretions since that time. I have discussed with her several options, including transfer to a tertiary care center. The patient has declined. She is requesting that [facility]. Risk/benefits discussed, informed consent obtained, and all questions answered.
--- NOTE | 2020-01-03 02:51 | Operative Report ---
Nonrecallable Operative Report DATE OF SURGERY: 01/03/20 PREOPERATIVE DIAGNOSIS: Impacted esophageal food bolus POSTOPERATIVE DIAGNOSIS: 1. Same as above. 2. Mid esophageal stricture, tight. Unable to pass scope through the stricture. OPERATION: EGD with extraction of food bolus. SURGEON: OPAL MITCHELL ANESTHESIA: GA TISSUE REMOVED OR ALTERED: Food bolus COMPLICATIONS: None apparent ESTIMATED BLOOD LOSS: minimal PROCEDURE: Procedure in detail: After informed consent was obtained, the patient was brought to the operating room and laid in the supine position. After general endotracheal anesthesia, the flexible gastroscope was inserted through the oropharynx, and into the esophagus. In the midesophagus, there is noted to be a large amount of particulate food matter. This was cleaned from the esophagus serially, using jumbo forceps. Once the esophageal food bolus was completely cleared, a tight stricture was identified in the mid esophagus. I was unable to pass the scope through the tight stricture, and it was left alone. The scope was then retracted up the remainder of the esophagus, suctioning with removal. At this time the procedure was concluded. All sponge, instrument, and needle counts were correct. Condition: Fair.
[2020-01-03] MEDS: ALBUTEROL SULFATE 0.042% NEB (1.25 MG/3 ML) AMPUL NEB SCH ×2 (04:30→08:04)
[2020-01-03] MEDS ORDERED: ACETAMINOPHEN 500 MG PO PRN (05:04)
[2020-01-03] MEDS ORDERED: NITROGLYCERIN 0.4 MG/TAB 25 TAB/BOTTLE SL PRN (05:04)
[2020-01-03] MEDS ORDERED: BISACODYL 5 MG TABEC PO PRN (05:04)
[2020-01-03] MEDS ORDERED: IPRATROPIUM BROMIDE 0.02% NEB 0.5 MG/2.5 ML AMPUL NEB PRN (05:04)
[2020-01-03] MEDS ORDERED: ALPRAZOLAM 0.25 MG TABLET PO PRN (05:04)
[2020-01-03] MEDS ORDERED: ONDANSETRON 4 MG TAB.RAPDIS PO PRN (05:04)
[2020-01-03] MEDS ORDERED: ALBUTEROL SULFATE HFA (90 MCG/PUFF) 8 GM MDI IH PRN (05:04)
--- NOTE | 2020-01-03 06:46 | PDOC DISCHARGE SUMMARY ---
General - Admit/Disc Date/PCP Admission Date/Primary Care Provider: 01/03/20 00:57 ROSALIND CHILDRESS PA-C Discharge Date: 01/03/20 - Discharge Diagnosis Final Diagnosis: Impacted esophageal food bolus. Mid esophageal stricture - Assessment Summary: This is a 79-year-old female admitted to the hospital with an esophageal food bolus. The food bolus was extracted successfully. The patient is now tolerating liquids. Plan for discharge home on full liquids. I have instructed the patient and her granddaughter to avoid solid food and/or meat. The patient should follow-up with gastroenterology to discuss dilation of her esophageal stricture. She may follow-up with [place] [facility] as needed. - Additional Information Discharge Diet: Full Liquids Discharge Activity: Activity As Tolerated, Balance Activity w/Rest Referrals: ROSALIND CHILDRESS PA-C [Primary Care Provider] - Follow up as needed Home Medications: Albuterol Sulfate [Ventolin Hfa 8 gm Mdi] 1 puff IH Q4HP PRN 11/05/19 Alprazolam [Xanax 0.25 mg Tablet] 0.25 mg PO QAM 11/05/19 Aspirin [Ecotrin 81 mg EC Tablet] 81 mg PO DAILY 11/05/19 Atorvastatin Calcium [Lipitor 40 mg Tablet] 40 mg PO QHS 11/05/19 Bisacodyl [Dulcolax 5 mg Tablet] 5 mg PO DAILYP PRN 11/05/19 Budesonide [Pulmicort Neb 0.5 mg/2 ml Ampul] 0.5 mg NEB Q12 11/05/19 Clopidogrel Bisulfate [Plavix 75 mg Tablet] 75 mg PO DAILY 11/05/19 Famotidine [Pepcid 20 mg Tablet] 20 mg PO DAILY 11/05/19 Ipratropium [place] [Atrovent 0.02% Neb 0.5 mg/2.5 ml Ampul] 1 vial NEB BIDP PRN 11/05/19 Mirtazapine [Remeron 15 mg Tablet] 15 mg PO QHS 11/05/19 Nitroglycerin [Nitro-Dur 10 mg (0.4MG/Hr) Transdermal Patch] 0.4 mg TOP DAILY 11/05/19 Nitroglycerin [Nitrostat 0.4 mg (1/150 Gr) Tabs 25/Bottle] 0.4 mg SL Q5MP PRN 11/05/19 Lidocaine [Lidoderm 5% (700 mg) Transdermal Patch] 1 patch TP DAILY #30 adh..patch 11/07/19 Megestrol Acetate [Megace [place] 400 mg/10 ml Udcup] 200 mg PO DAILY #30 udc 11/07/19 Metoprolol Tartrate [Lopressor 50 mg Tablet] 50 mg PO Q12 #60 tablet 11/07/19 Alprazolam [Xanax 0.25 mg Tablet] 0.25 mg PO ASDIR PRN #16 tablet 11/08/19 Levetiracetam [Keppra 500 mg Tablet] 500 mg PO Q12 #60 tablet 11/08/19 Acetaminophen [Pain Relief] 500 mg PO PRN PRN 01/03/20 Ferrous Sulfate [Feosol 325 mg Tablet] 325 mg PO DAILY 01/03/20 Isosorbide Mononitrate [Imdur 30 mg Tablet.er] 30 mg PO DAILY 01/03/20 Levetiracetam 500 mg/NaCl-Iso [Keppra RTU 500 mg/NaCl-Iso 100 ml Premix] 5 ml PO Q12 01/03/20 Lisinopril [Zestril] 2.5 mg PO DAILY 01/03/20 Ondansetron [Zofran Odt 4 mg Tablet] 4 mg PO Q8 PRN 01/03/20 Additional Information: Discharge home. Diet: Full liquid. Activity: Nonstrenuous. Follow-up with [place] [facility] as needed. Follow-up with gastroenterology for esophageal stricture dilation. Resume all home medications, as previously prescribed. History of Present Illiness History of Present Illness: TIANA REESE is a 79 year old female who was eating leftover hamburger today. She swallowed a large piece of meat, which became lodged in her esophagus. Since that time, she has been unable to swallow saliva, water, medications, or anything else. She denies headache, chest pain, malaise, fatigue, hematemesis, hematochezia, melena, blurry vision, or dizziness. She has baseline shortness of breath due to COPD and home oxygen requirement. Her shortness of breath is no worse than usual. Nothing makes her symptoms better. Attempting to swallow makes them worse. Physical Exam Vital Signs: Temp Pulse Resp BP Pulse Ox 98.2 F 111 H 16 181/63 H 95 01/03/20 03:29 01/03/20 04:44 01/03/20 04:44 01/03/20 03:29 01/03/20 04:47 Intake & Output 01/01/20 01/02/20 01/03/20 06:59 06:59 06:59 Intake Total 350 Output Total 75 Balance 275 Weight 31.9 kg Results Laboratory Results: WBC 6.6 10^3/uL (4.0-10.5) 01/02/20 23:55 RBC 3.27 10^6/uL (3.72-5.28) L 01/02/20 23:55 Hgb 9.7 g/dL (12.0-15.5) L 01/02/20 23:55 Hct 29.4 % (36.0-47.0) L 01/02/20 23:55 MCV 90 fl (80-97) 01/02/20 23:55 MCH 29.6 pg (27.0-33.4) 01/02/20 23:55 MCHC 32.8 g/dL (32.0-36.0) 01/02/20 23:55 RDW 15.2 % (11.5-14.0) H 01/02/20 23:55 Plt Count 149 10^3/uL (150-450) L 01/02/20 23:55 Lymph % (Auto) 28.6 % (13-45) 01/02/20 23:55 [place] % (Auto) 8.4 % (3-13) 01/02/20 23:55 Eos % (Auto) 2.2 % (0-6) 01/02/20 23:55 Baso % (Auto) 0.4 % (0-2) 01/02/20 23:55 Absolute Neuts (auto) 4.0 10^3/uL (1.7-8.2) 01/02/20 23:55 Absolute Lymphs (auto) 1.9 10^3/uL (0.5-4.7) 01/02/20 23:55 Absolute Monos (auto) 0.6 10^3/uL (0.1-1.4) 01/02/20 23:55 Absolute Eos (auto) 0.1 10^3/uL (0.0-0.6) 01/02/20 23:55 Absolute Basos (auto) 0.0 10^3/uL (0.0-0.2) 01/02/20 23:55 Seg Neutrophils % 60.4 % (42-78) 01/02/20 23:55 Sodium 142.2 mmol/L (137-145) 01/02/20 23:55 Potassium 4.2 mmol/L (3.6-5.0) 01/02/20 23:55 Chloride 106 mmol/L (98-107) 01/02/20 23:55 Carbon Dioxide 34 mmol/L (22-30) H 01/02/20 23:55 Anion Gap 2 (5-19) L 01/02/20 23:55 BUN 22 mg/dL (7-20) H 01/02/20 23:55 Creatinine 0.69 mg/dL (0.52-1.25) 01/02/20 23:55 Est GFR ( Amer) > 60 (>60) 01/02/20 23:55 Est GFR (MDRD) Non-Af > 60 (>60) 01/02/20 23:55 Glucose 128 mg/dL (75-110) H 01/02/20 23:55 Calcium 9.0 mg/dL (8.4-10.2) 01/02/20 23:55 Total Bilirubin 0.3 mg/dL (0.2-1.3) 01/02/20 23:55 Direct Bilirubin 0.0 mg/dL (0.0-0.4) 01/02/20 23:55 Neonat Total Bilirubin Not Reportable 01/02/20 23:55 Neonat Direct Bilirubin Not Reportable 01/02/20 23:55 Neonat Indirect Bili Not Reportable 01/02/20 23:55 AST 40 U/L (14-36) H 01/02/20 23:55 ALT 22 U/L (<35) 01/02/20 23:55 Alkaline Phosphatase 180 U/L (38-126) H 01/02/20 23:55 Total Protein 6.8 g/dL (6.3-8.2) 01/02/20 23:55 Albumin 3.7 g/dL (3.5-5.0) 01/02/20 23:55 SARS-CoV-2 (PCR) NEGATIVE (NEGATIVE) 01/03/20 00:04
[2020-01-03] MEDS ORDERED: ALBUTEROL SULFATE HFA (90 MCG/PUFF) 200 PUFF/8.5 GM MDI IH PRN (07:04)
[2020-01-03] MEDS ORDERED: SUCCINYLCHOLINE CHLORIDE INJ 200 MG/10 ML VIAL ONE (08:29)
[2020-01-03] MEDS ORDERED: PHENYLEPHRINE HCL INJ/PF 10 MG/1 ML SDV ONE (08:29)
[2020-01-03 08:40] VITALS: BP 150/65
[2020-01-03] MEDS ORDERED: METOPROLOL TARTRATE 50 MG TABLET PO SCH (10:00)
[2020-01-03] MEDS ORDERED: CLOPIDOGREL BISULFATE 75 MG TABLET PO SCH (10:00)
[2020-01-03] MEDS ORDERED: SODIUM CHLORIDE PO SCH (10:00)
[2020-01-03] MEDS ORDERED: [UNRECOGNIZED DRUG - OTHER] PO SCH (10:00)
[2020-01-03] MEDS ORDERED: LEVETIRACETAM PO SCH (10:00)
[2020-01-03] MEDS ORDERED: ISOSORBIDE MONONITRATE 30 MG TAB.ER.24H PO SCH (10:00)
[2020-01-03] MEDS ORDERED: MEGESTROL ACETATE SUSP 400 MG/10 ML UDCUP PO SCH (10:00)
[2020-01-03] MEDS ORDERED: LIDOCAINE 5% (700 MG) TRANSDERMAL ADH..PATCH TP SCH (10:00)
[2020-01-03] MEDS ORDERED: FAMOTIDINE 20 MG TABLET PO SCH (10:00)
[2020-01-03] MEDS ORDERED: FERROUS SULFATE 325 MG TABLET PO SCH (10:00)
[2020-01-03] MEDS ORDERED: NITROGLYCERIN 10 MG (0.4 MG/HR) PATCH.TD24 TOP SCH (10:00)
[2020-01-03] MEDS ORDERED: ASPIRIN 81 MG TABLET, ENT COATED PO SCH (10:00)
[2020-01-03] MEDS ORDERED: LISINOPRIL 5 MG TABLET PO SCH (10:00)
[2020-01-03] MEDS ORDERED: ATORVASTATIN CALCIUM 40 MG TABLET PO SCH (22:00)
== END 2020-01-03 09:09 | disposition home or self-care (01) ==
LOC: ER 22:06 → EH 01-03 00:57 → 4S 01-03 03:23
PROVIDERS: ATTEND Surgery
DX: T18.128A Food in esophagus causing other injury, initial encounter (principal); X58.XXXA Exposure to other specified factors, initial encounter; K22.2 Esophageal obstruction; J44.9 Chronic obstructive pulmonary disease, unspecified; I25.10 Atherosclerotic heart disease of native coronary artery without angina pectoris; I10 Essential (primary) hypertension; E78.5 Hyperlipidemia, unspecified; R00.0 Tachycardia, unspecified; K21.9 Gastro-esophageal reflux disease without esophagitis; I25.2 Old myocardial infarction; Z79.82 Long term (current) use of aspirin; Z79.899 Other long term (current) drug therapy; Z99.81 Dependence on supplemental oxygen; Z03.818 Encounter for observation for suspected exposure to other biological agents ruled out; Z95.5 Presence of coronary angioplasty implant and graft; Z87.891 Personal history of nicotine dependence; Z79.02 Long term (current) use of antithrombotics/antiplatelets; Z86.73 Personal history of transient ischemic attack (TIA), and cerebral infarction without residual deficits
CPT/HCPCS: 99284; 96360; 96361; 36415; 85025; 80053; 94640; 43247; U0003; A9270; J7120; J2704; C9803; 731; 87635; 99140; G0378; J0330; J2250; J2370; J3490